=== PATIENT | male | born 1945 | race Caucasian/White ===

== ENCOUNTER → 2017-04-02 | Outpatient (REF) | payer MEDICARE, OTHER ==
[~2017-04-02] MED LIST: /DIVA50TA PO; CIALIS PO; OMEP20CA3 PO; RAMI10CA PO; SIMV40TA2 PO
[2017-04-02 11:49] LABS: MEAN CORPUSCULAR HEMOGLOBIN 31.5 pg (27.0-33.0); MEAN CORPUSCULAR HGB CONC 33.8 g/dl (32.0-36.5); RED CELL DISTRIBUTION WIDTH 11.4 % (11.5-14.5); WHITE BLOOD COUNT 6.1 10^3/uL (4.0-10.0)
[2017-04-02 12:07] LABS: ALBUMIN 3.7 GM/DL (3.2-5.2); ALBUMIN/GLOBULIN RATIO 1.06 (1.00-1.93); ALKALINE PHOSPHATASE 53 U/L (45-117); ALT/SGPT 57 U/L (12-78); ANION GAP 6 MEQ/L (8-16); AST/SGOT 29 U/L (15-37); BILIRUBIN,TOTAL 0.5 MG/DL (0.2-1.0); BLOOD UREA NITROGEN 17 MG/DL (7-18); CALCIUM LEVEL 9.6 MG/DL (8.8-10.2); CARBON DIOXIDE LEVEL 33 MEQ/L (21-32); CHLORIDE LEVEL 101 MEQ/L (98-107); CHOLESTEROL LEVEL 158 MG/DL (<200); GLOMERULAR FILTRATION RATE > 60.0 (>42); GLUCOSE, FASTING 108 MG/DL (83-110); POTASSIUM SERUM 4.3 MEQ/L (3.5-5.1); SODIUM LEVEL 140 MEQ/L (136-145); TOTAL PROTEIN 7.2 GM/DL (6.4-8.2); TRIGLYCERIDES LEVEL 179 MG/DL (<150)
== END ==
LOC: M SFHCCLAY 10:45
PROVIDERS: ATTEND Family Medicine
DX: I11.9 Hypertensive heart disease without heart failure (principal); K21.9 Gastro-esophageal reflux disease without esophagitis; E78.00 Pure hypercholesterolemia, unspecified

== ENCOUNTER 2017-05-03 15:41 | Observation (INO) | payer MEDICARE, BC, OTHER ==
[~2017-05-03] VITALS: Ht 170.2 cm; Wt 98.0 kg
[2017-05-03] MEDS ORDERED: ALEV220T26 PO (15:53)
--- NOTE | 2017-05-03 16:51 | REP ---
CT Head without contrast HISTORY: Infarction COMPARISON: 08/31/2008 Areas of decreased attenuation are present in the periventricular white matter. This represents all vessels disease. There is no intraparenchymal hemorrhage, acute infarct, mass or midline shift. The ventricular system and cortical sulci as well as subarachnoid space in the posterior fossa are dilated consistent with minimal volume loss. There is no extra cerebral collection. There is no fracture. The visualized sinuses are clear. IMPRESSION: 1. Small vessel ischemic disease. 2. Minimal volume loss. Signed by Clint Pepper MD 05/03/2017 04:42 P
[2017-05-03 17:15] LABS: BASO % 0.1 % (0.0-1.0); EOS % 0.3 % (0.0-3.0); IMMATURE GRANULOCYTE % 0.3 % (0-0); LYMPH # 0.4 10^3/uL (1.5-4.5); LYMPH % 4.3 % (24.0-44.0); MEAN CORPUSCULAR HEMOGLOBIN 31.7 pg (27.0-33.0); MEAN CORPUSCULAR HGB CONC 34.1 g/dl (32.0-36.5); MONO # 0.5 10^3/uL (0.0-0.8); NEUTROPHILS # 8.3 10^3/uL (1.8-7.7); PLATELET COUNT, AUTOMATED 118 10^3/uL (150-450); RED CELL DISTRIBUTION WIDTH 11.8 % (11.5-14.5); WHITE BLOOD COUNT 9.2 10^3/uL (4.0-10.0)
[2017-05-03 17:26] LABS: INR 1.04
[2017-05-03 17:35] LABS: ANION GAP 6 MEQ/L (8-16); BLOOD UREA NITROGEN 29 MG/DL (7-18); CALCIUM LEVEL 9.1 MG/DL (8.8-10.2); CARBON DIOXIDE LEVEL 30 MEQ/L (21-32); CHLORIDE LEVEL 107 MEQ/L (98-107); CREATININE FOR GFR 1.16 MG/DL (0.70-1.30); GLOMERULAR FILTRATION RATE > 60.0 (>42); GLUCOSE, FASTING 164 MG/DL (83-110); POTASSIUM SERUM 4.6 MEQ/L (3.5-5.1); SODIUM LEVEL 143 MEQ/L (136-145)
[2017-05-03] MEDS ORDERED: DEPA500T2 PO ×2 (19:57)
[2017-05-03] MEDS ORDERED: CIAL20TA PO (19:57)
[2017-05-03] MEDS ORDERED: DIVALPROEX 500MG *ER* TAB PO SCH (21:00)
[2017-05-03] MEDS ORDERED: RAMIPRIL 5 MG CAP PO SCH (21:00)
--- NOTE | 2017-05-03 21:24 | HPE ---
DATE OF ADMISSION: 05/03/2017 PRIMARY CARE PROVIDER: Kendall Du MD at [place]. Patient comes in with a chief complaint of foot drop beginning yesterday evening, 05/02/2017. Patient notes that he was putting up his [employer] decorations in the yard outside. He was walking back and forth to the house. He said at some point during the evening, however, he found that when he got up to walk he suddenly had some foot drop. Patient says that he went to sleep figuring that it was some sort of mechanical injury. When he woke up during the day, however, it had not resolved. Although patient's condition has improved, as per patient, it has not fully resolved. Patient went to his orthopedist and his orthopedist sent him to the emergency department (ED) for evaluation of possible transient ischemic attack (TIA) versus CVA. Patient received a CT scan while in the ED, however MRI was not feasible given patient's pacemaker. Physician automotive parts counter assistant (PA) in the ED consulted neurology, recommended admission under observation for CVA/TIA rule out. Patient has a previous medical history of bradycardia status post a seizure for which he now has a pacemaker. Patient also has history of seizure as noted above. Patient's home medications include: - naproxen - tadalafil - Depakote - omeprazole - ramipril - simvastatin Patient denies any significant family medical history. ALLERGIES: Patient has allergies to OXYCODONE and OXYCONTIN as per patient. On full review of systems, patient without any other complaints acutely other than what is noted in the history of present illness (HPI). SOCIAL HISTORY: Patient is a retired [employer] worker. PHYSICAL EXAMINATION: Patient's vital signs within normal limits. Temperature 97.3, pulse 86, respiratory rate 16, blood pressure 132/82, pulse oximetry 94% on room air, patient notes that that has been his baseline. Patient also notes that he has no history of chronic obstructive pulmonary disease (COPD) or asthma, takes no medications, or suffers from shortness of breath. Patient is alert and oriented times three with normal affect and normal mood. Patient's cranial nerves (CN) II-XII grossly intact. Patient has good strength in all four major extremities. Patient does have good plantar flexion, but forward dorsiflexion on his right foot is 4/5 dorsiflexion on the right. All other muscle groups show good strength. Patient is able to ambulate without difficulty at this time. S1, S2, regular rate and rhythm, no murmurs, rubs, or gallops. Pacemaker apparent on chest exam. Good inspiratory and expiratory effort. No wheezes, rhonchis, or rales. Abdomen is soft, nontender to palpation. No apparent lymphadenopathy. Ears, nose, throat (ENT) within normal limits. Extraocular movement intact. Pupils equal, round and reactive to light and accommodation. LABORATORY DATA: CBC grossly normal. Chemistry also grossly normal except a mildly elevated BUN of 29/1.16, mildly elevated glucose of 164, however this is not a fasting glucose. PT/INR is 13.7/1.04. IMAGING: Head CT impression is small vessel ischemic disease, minimal volume loss. MRI cannot be done as patient with pacemaker. ASSESSMENT AND PLAN: Patient is a 72-year-old male with a previous medical history as noted above. Patient to be kept in progressive care unit (PCU) for observation. Neurology contacted by myself with [id number] conversation. Neurology to see patient in the morning. Neurologic checks. Aspirin recommended, not statins as per neurology. For hypertension, continue home medications, continue lisinopril. Will hold erectile dysfunction medication at this time. Patient for observation at this time only as patient is already 24 hours post with improving status and no obvious indication that this is a CVA, could be also nerve impingement. Patient first seen 05/03/2017.
[2017-05-03 22:23] VITALS: BP 133/80
[2017-05-03] MEDS: ASPIRIN 81 MG CHEW TABLET PO SCH (22:46)
[2017-05-03 22:47] VITALS: BP 133/80
[2017-05-04] MEDS ORDERED: SLF 3 ML SYR IV PRN (02:15)
[2017-05-04] MEDS ORDERED: FAMOTIDINE 20 MG TAB PO ONE (05:15)
[2017-05-04] MEDS: SLF 3 ML SYR IV SCH ×2 (05:25→13:00)
[2017-05-04 05:50] LABS: MEAN CORPUSCULAR HEMOGLOBIN 30.5 pg (27.0-33.0); MEAN CORPUSCULAR HGB CONC 32.5 g/dl (32.0-36.5); MEAN CORPUSCULAR VOLUME 93.9 fl (80.0-96.0); PLATELET COUNT, AUTOMATED 118 10^3/uL (150-450); RED CELL DISTRIBUTION WIDTH 11.9 % (11.5-14.5); WHITE BLOOD COUNT 6.3 10^3/uL (4.0-10.0)
[2017-05-04 05:59] LABS: ANION GAP 7 MEQ/L (8-16); BLOOD UREA NITROGEN 30 MG/DL (7-18); CALCIUM LEVEL 8.6 MG/DL (8.8-10.2); CARBON DIOXIDE LEVEL 30 MEQ/L (21-32); CHLORIDE LEVEL 108 MEQ/L (98-107); CREATININE FOR GFR 1.06 MG/DL (0.70-1.30); GLOMERULAR FILTRATION RATE > 60.0 (>42); GLUCOSE, FASTING 152 MG/DL (83-110); POTASSIUM SERUM 3.9 MEQ/L (3.5-5.1); SODIUM LEVEL 145 MEQ/L (136-145)
--- NOTE | 2017-05-04 07:40 | ECGEPIP ---
Stationary ECG Study [facility] - ED Test Date: 2017-05-03 Pat Name: GAYLA VILLAFUERTE Department: Room: - Gender: M Boot Maker: ct : 1945 Requested By: LACI Fish PA-C Order Number: [id number] Reading MD: Edgar Cooley Measurements Intervals [place] Rate: 101 P: 41 OR: 194 QRS: -25 QRSD: 103 T: 69 QT: 350 QTc: 454 Interpretive Statements SINUS TACHYCARDIA NONSPECIFIC T-WAVE ABNORMALITY RHYTHM CHANGE COMPARED TO 02/21/14 Electronically Signed On 05-04-2017 7:39:35 EST by Edgar Cooley
[2017-05-04 08:00] VITALS: BP 173/85
[2017-05-04] MEDS ORDERED: OMEPRAZOLE 20 MG CAP PO SCH (09:00)
[2017-05-04] MEDS ORDERED: DIVALPROEX 500MG *ER* TAB PO SCH (09:00)
[2017-05-04] MEDS ORDERED: SIMVASTATIN 40 MG TAB PO SCH (09:00)
--- NOTE | 2017-05-04 09:07 | IPN ---
DATE OF SERVICE: 05/04/2017 Francisco was admitted with a right foot drop. He had been doing a lot of work around the house, [employer] decorations, etc.. Two days before admission, he laid down in his recliner and then when he woke up, he noticed his right foot felt weak and he had a foot drop. He had an appointment to see his orthopedist the next day so we went and saw Dr. Mckeon. Dr. Mckeon sent him to the emergency room because he was concerned about stroke or transient ischemic attack (TIA). He has absolutely no symptoms beyond the right foot drop. He has no weakness in the leg or right hand/right face. Strength to the foot is normal on plantar flexion, it is just dorsiflexion that is weak which is not consistent with stroke. Apparently the ER called neurology and admission was advised. It seems to me he simply has a peroneal nerve palsy which is really an outpatient condition. Blood pressure 133/80, pulse 90, respiratory rate 18, 91% oxygen saturation. General appearance: He is resting in bed, no distress. No carotid bruits. Lungs: Clear. Heart: 1/6 systolic ejection murmur. Abdomen: Soft, nontender, no masses, no peripheral edema. Neuro exam: Shows cranial nerves II-XII to be intact. Mental status exam normal. He has normal strength, reflexes, coordination and sensation in his upper extremities as well as the left lower extremity. Right lower extremity has normal strength in the quadriceps, hamstrings and to plantar flex the foot. He has 4/5 strength on dorsiflexion of the foot. His greatest weakness is trying to extend the great toe of the right foot. Sensation is normal in the foot. Reflexes are normal. LABS: CT of the brain is unremarkable. Electrolytes show mildly elevated BUN, otherwise unremarkable. IMPRESSION: Right foot drop. I think this is a peroneal nerve palsy that typically is an outpatient workup. At this point, he has been admitted to progressive care unit (PCU). I would really like to get him home today as I do not think he warranted admission for this condition. I discussed the case with Dr. Craft who indicates that he felt the patient has a peroneal nerve palsy as well but advised admission for further evaluation. He would like a repeat CT scan of the brain and carotid ultrasound before the patient is seen and then hopefully can be discharged home so we can get the nerve conduction study and EMG that is usually a part of the workup for this. Patient has a pacer so there is no MRI imaging that we can do. He does not have any problems with back pain so I do not think this is a disc issue. I have also put a consult in for orthopedics because I think he needs a splint before discharge. PLAN: CT of the brain and carotid ultrasound prior to being evaluated by neurology and then discharge him after he gets a splint and is seen by neuro.
[2017-05-04] MEDS: ASPIRIN 81 MG CHEW TABLET PO SCH (09:08)
--- NOTE | 2017-05-04 09:38 | REP ---
CT Head without contrast HISTORY: Right foot drop COMPARISON: 05/03/2017 Areas of decreased attenuation are present in the periventricular white matter. This represents small-vessel ischemic disease. There is no intraparenchymal hemorrhage, acute infarct, mass or midline shift. The ventricular system and cortical sulci as well as subarachnoid space in the posterior fossa are dilated consistent with minimal volume loss. There is no extra cerebral collection. There is no fracture. The visualized sinuses are clear. IMPRESSION: 1. Small vessel ischemic disease. 2. Minimal volume loss. Signed by Clint Pepper MD 05/04/2017 09:31 A
[2017-05-04 12:00] VITALS: BP 118/78
--- NOTE | 2017-05-04 15:23 | REP ---
CAROTID ULTRASOUND: Real-time ultrasound evaluation and duplex Doppler interrogation of the extracranial carotid vasculature is performed. There is mild plaquing and narrowing in both carotid bulbs extending into the internal and external carotid arteries. Luminal narrowing is less than 50%. There is no evidence of hemodynamically significant stenosis of either internal carotid artery. Normal flow velocities are seen. The vertebral arteries demonstrate normal direction of flow. RIGHT LEFT Peak systolic velocity ICA 71 cm/s 59.6 cm/s End diastolic velocity ICA 16.8 cm/s 5.7 cm/s Peak systolic velocity CCA 146.4 cm/s 148.9 cm/s Peak systolic velocity ECA 107.1 cm/s 90.5 cm/s ICA/CCA ratio 0.4 0.4 IMPRESSION: Bilateral luminal narrowing of the internal carotid arteries less than 50%. No evidence of hemodynamically significant stenosis. Signed by Pietro Vaughn MD 05/04/2017 03:14 P
[2017-05-04 16:00] VITALS: BP 120/80
--- NOTE | 2017-05-04 16:27 | CR ---
DATE OF CONSULTATION: 05/04/2017 CHIEF COMPLAINT: Right foot drop. HISTORY OF PRESENT ILLNESS: This is a 72-year-old male who on 05/02/2017 noticed that he was having some weakness in his right ankle. The patient states he was sitting in a recliner, and when he got up in the evening he found that he had a right foot drop. Patient states he noticed his foot was flapping against the ground. When he awoke the following morning, he found that the issue had not resolved. He was seen here at [facility], where he was sent to the emergency room for evaluation of a possible transient ischemic attack (TIA) or cerebrovascular accident (CVA). In the emergency room he underwent a CT scan, and neurology was consulted. Unfortunately, the patient cannot get an MRI due to a pacemaker. PAST MEDICAL HISTORY: 1. Seizure disorder. 2. Bradycardia. HOME MEDICATIONS: Naproxen, tadalafil, Depakote, omeprazole. ALLERGIES: OXYCODONE AND OXYCONTIN. SOCIAL HISTORY: The patient is a retired department of [employer] job titles. REVIEW OF SYSTEMS: No fevers, chills, numbness, tingling, weakness in other extremities besides his right ankle, or significant pain. PHYSICAL EXAMINATION: GENERAL: Well appearing, alert and oriented. No acute distress. PULMONARY: Regular breathing. MUSCULOSKELETAL: In the right foot, the patient has 5/5 strength of plantarflexion. He is able to dorsiflex his foot a small amount, but this is relatively weak, approximately 3-4 out of 5. The patient states this has actually improved since 2 days ago. He has normal sensation to light touch in the superficial peroneal, deep peroneal, and tibial distribution. His foot is warm and well perfused, and there is a palpable dorsalis pedis pulse. He has no pain in the ankle or foot. There is no pain proximally in the region of the common peroneal nerve across his fibula. No significant swelling in the calf. 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 PLAN: The patient should undergo further workup to identify the cause of his nerve palsy. This would likely include an electromyogram (EMG). Unfortunately, he cannot get an MRI. In the meantime, he would benefit from use of an ankle/foot orthosis (AFO) to help from any sort of contracture of his ankle. It would be okay for him to be discharged from the hospital with a lace-up ankle brace and have the AFO made for him early next week. I already follow this patient and would be happy to see him back next week. He does have an appointment scheduled for May 17 as well. I will refer to neurology and the internal medicine doctor for any further workup regarding a potential stroke.
--- NOTE | 2017-05-04 17:49 | DS.PDOC ---
Discharge Summary General Date of Admission May 03, 2017 at 19:57 Date of Discharge 05/04/17 Discharge Summary Consults: Orthopedic surgery (Gia), neurology (Venancio) Discharge diagnosis: Right foot drop Secondary diagnosis: Hypertension Hospital course: Patient was admitted on 05/03/17 with right foot drop. He was admitted due to concern for TIA. On admission patient had CT of head which showed minimal volume loss, small vessel ischemic disease, repeat CT on 05/04/17 did not show any change. On 05/04/17 patient was seen and evaluated by orthopedic surgery, neurology. Orthopedic surgery recommended a ankle brace, AFO. She recommended that he have office follow-up. Neurology saw and cleared patient for discharge. Progress note on date of discharge: Subjective: Patient reports that he is doing okay. He is complaining of a little soreness and weakness in his foot but otherwise does not have any acute concerns. Objective: Vitals: Temperature 98.6, pulse 71, respiratory rate 22, blood pressure 118/78, pulse ox 92% on room air Gen.: Patient awake, alert and oriented, verbal and able to answer questions appropriately. Patient does not appear to be in any acute distress Musculoskeletal: 5/5 strength present throughout right and left lower extremity with exception of right foot plantar flexion which shows 4/5 strength. Neurological: Sensation intact and symmetrical throughout lower extremities bilaterally Labs: CBC: White blood cell 6.3, hemoglobin and hematocrit 15.9/48.9, platelets 118 Chemistry: Sodium 145, potassium 3.9, chloride 108, carbon dioxide 30, BUN 30, creatinine 1.06, glucose 152, calcium 8.6 Assessment: Patient is a 72-year-old male with right foot drop, seen and evaluated by neurology and orthopedic surgery. He symptoms are stable and he is clear for discharge. Disposition: Discharge patient to home Follow-up: With orthopedic surgery () in 2-3 days, primary care (Dr. Du) in 5- 7 days, neurology (Dr. Craft) in 5-7 days Additional instructions: Patient advised to use lace up ankle brace until advised otherwise by orthopedic surgery, primary care, neurology Activity: As tolerated Diet: As tolerated Medications on discharge: Depakote 500 mg by mouth daily Depakote 1000 mg by mouth daily at bedtime Naproxen 220 mg by mouth twice a day for pain Omeprazole 20 mg by mouth daily Ramipril 10 mg by mouth daily at bedtime Simvastatin 40 mg by mouth daily Tadalafil 20 mg by mouth daily as needed for erectile dysfunction Cc: , Dr. Du, Dr. Craft Discharge Medications Scheduled (Ramipril) 10 Mg Cap, 10 MG PO QHS, (Reported) Divalproex Sodium (Depakote ER) 500 Mg Tab, 500 MG PO QAM, (Reported) Divalproex Sodium (Depakote ER) 500 Mg Tab, 1,000 MG PO QHS, (Reported) Omeprazole (Omeprazole) 20 Mg Cap, 20 MG PO DAILY, (Reported) Simvastatin - High Dose (Simvastatin) 40 Mg Tab, 40 MG PO DAILY, (Reported) Scheduled PRN Naproxen Sodium (Aleve) 220 Mg Tab, 220 MG PO BID PRN for PAIN, (Reported) Tadalafil (Cialis) 20 Mg Tab, 20 MG PO DAILY PRN for ERECTILE DYSFUNCTION, ( Reported) Allergies Coded Allergies: Oxycodone (Verified Adverse Reaction, Mild, "made me hot all over", ) GME ATTESTATION GME ATTESTATION My faculty preceptor for this patient encounter was physically present during the encounter and was fully available. All aspects of the patient interview, examination, medical decision making process, and medical care plan development were reviewed and approved by the faculty preceptor. The faculty preceptor is aware and concurs with the plan as stated in the body of this note and will attest to such by his/her cosignature. ANGELITO NGUYEN DO May 04, 2017 17:49
--- NOTE | 2017-05-06 11:30 | CR ---
DATE OF CONSULTATION: 05/03/2017 REFERRING PHYSICIAN: Dr. Juarez Purcell REASON FOR CONSULTATION: Right-sided foot drop. HISTORY OF PRESENT ILLNESS: Francisco Orozco is a 72-year-old man who was at his baseline state of health until evening of 05/02/2017, when he was sitting in a recliner watching TV. He got up and felt weakness of right foot in dorsiflexion. He did not have any numbness or pain. He denies any weight loss or sitting in an unusual position in the recliner. He denies any headaches, neck or back pain. He went and saw his orthopedic surgeon, who referred him to the emergency department thinking that he may have had a stroke. The patient is unable to get MRI scan of brain. He has a pacemaker since 2004 due to severe bradycardia and heart block. He also has history of seizures. He had first seizure in 2004 and then second seizure 4 years later. He has been on Depakote. PAST MEDICAL HISTORY: 1. Seizures. 2. Pacemaker placement due to bradycardia and heart block. 3. Acid reflux. 4. Hypertension. 5. Dyslipidemia. CURRENT MEDICATIONS: - Depakote - omeprazole - ramipril - simvastatin - tadalafil - naproxen ALLERGIES: OXYCODONE. SOCIAL HISTORY: He denies smoking, alcohol or illicit drugs. FAMILY HISTORY: Unremarkable and noncontributory. REVIEW OF SYSTEMS: All systems were reviewed and found to be noncontributory except as mentioned in history present illness. PHYSICAL EXAMINATION: Blood pressure 130/ , pulse 86, respiratory 16, temperature 97.3. Heart regular rate rhythm. Lungs clear to auscultation. Abdomen soft, nontender, nondistended. No pedal edema. No gross musculoskeletal abnormalities. No rash. No rigidity of tremor. No dysmetria or ataxia. Patient is awake, alert, oriented to place, person and time. Normal speech comprehension and repetition. Extraocular muscles are intact. No facial weakness. Tongue and uvula are midline. 5/5 strength in all four extremities, except right foot in dorsi flexion where strength is 4+/5. Deep tendon reflexes are 2+ throughout. He feels altered sensation in dorsum of right foot. Rest of the sensory examination is within normal limits. Plantar's are downgoing. DIAGNOSTIC STUDIES: CT scan of his head twice shows small vessel ischemic disease of brain. Carotid ultrasound showed less than 50% bilateral carotid artery stenosis. ASSESSMENT: 1. 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 2. Bilateral carotid artery less than 50% stenosis. 3. Small-vessel ischemic disease of brain. PLAN: 1. Electromyogram (EMG) nerve conduction study of right leg on outpatient basis. 2. Aspirin 81 mg by mouth daily, and continue simvastatin and ramipril. He also takes Depakote for his seizures. 3. He will follow with our office in 1 month after hospital discharge. He will do home exercises to improve strength of his right foot.
== END 2017-05-04 18:34 | disposition home or self-care (01) ==
LOC: M ED 15:41 → M ED INP 19:57 → M PCU 22:20
PROVIDERS: ADMIT Internal Medicine; ATTEND Family Medicine
DX: M21.371 Foot drop, right foot (principal); G40.909 Epilepsy, unspecified, not intractable, without status epilepticus; I10 Essential (primary) hypertension; K21.9 Gastro-esophageal reflux disease without esophagitis; E78.5 Hyperlipidemia, unspecified; I65.23 Occlusion and stenosis of bilateral carotid arteries; Z95.0 Presence of cardiac pacemaker; Z79.899 Other long term (current) drug therapy; Z88.5 Allergy status to narcotic agent
CPT/HCPCS: 36415; 70450; 80048; 82550; 82553; 84484; 85025; 85027; 85610; 93005; 93880; 99284; G0378

== ENCOUNTER → 2017-05-21 | Outpatient (REF) | payer MEDICARE, OTHER ==
[~2017-05-21] MED LIST changes: +ALEV220T26 PO; +ASPI81TA85 PO; +CIAL20TA PO; +DEPA500T2 PO
[2017-05-21 12:18] LABS: BASO % 0.5 % (0.0-1.0); EOS # 0.1 10^3/uL (0.0-0.50); EOS % 1.4 % (0.0-3.0); IMMATURE GRANULOCYTE % 0.3 % (0-0); LYMPH # 2.1 10^3/uL (1.5-4.5); LYMPH % 36.3 % (24.0-44.0); MEAN CORPUSCULAR HEMOGLOBIN 31.2 pg (27.0-33.0); MEAN CORPUSCULAR HGB CONC 33.3 g/dl (32.0-36.5); MEAN CORPUSCULAR VOLUME 93.7 fl (80.0-96.0); MONO # 0.8 10^3/uL (0.0-0.8); MONO % 13.6 % (0.0-5.0); NEUTROPHILS # 2.8 10^3/uL (1.8-7.7); NEUTROPHILS % 47.9 % (36.0-66.0); PLATELET COUNT, AUTOMATED 147 10^3/uL (150-450); RED CELL DISTRIBUTION WIDTH 11.9 % (11.5-14.5); WHITE BLOOD COUNT 5.8 10^3/uL (4.0-10.0)
[2017-05-21 13:29] LABS: ALBUMIN 3.5 GM/DL (3.2-5.2); ANION GAP 7 MEQ/L (8-16); BLOOD UREA NITROGEN 24 MG/DL (7-18); CALCIUM LEVEL 8.7 MG/DL (8.8-10.2); CARBON DIOXIDE LEVEL 30 MEQ/L (21-32); CHLORIDE LEVEL 107 MEQ/L (98-107); GLOMERULAR FILTRATION RATE > 60.0 (>42); GLUCOSE, FASTING 115 MG/DL (83-110); PHOSPHORUS LEVEL 2.2 MG/DL (2.5-4.9); POTASSIUM SERUM 4.3 MEQ/L (3.5-5.1); SODIUM LEVEL 144 MEQ/L (136-145)
== END ==
LOC: M LABDRAW1 09:15
PROVIDERS: ATTEND Physician Assistant
DX: I49.5 Sick sinus syndrome (principal)

== ENCOUNTER 2017-05-23 11:15 | Day surgery (SDC) | payer MEDICARE, BC, OTHER ==
[~2017-05-23] VITALS: Ht 170.2 cm; Wt 97.5 kg
[~2017-05-23 11:15] MED LIST changes: +LIDOCAINE 2% INJ 100 MG/5 ML SDV (FOR ANES.) As Ordered ONE; +MIDAZOLAM INJ 2 MG/2 ML VIAL (J2250) As Ordered ONE; +PROPOFOL 200 MG/20 ML VIAL As Ordered ONE; +fentaNYL 100 MCG/2 ML INJECTION (J3010) As Ordered ONE
[2017-05-23] MEDS ORDERED: CEFAZOLIN SOD 1 GM in APPROPRIATE DILUENT 1 EA IV ONE ×2 (12:00→13:00)
[2017-05-23] MEDS ORDERED: ISOVUE-300 61% 50ML VIAL (Q9967) As Ordered ONE (12:51)
[2017-05-23] MEDS ORDERED: BACITRACIN PWD 50,000 UNITS VIAL As Ordered ONE (12:51)
[2017-05-23] MEDS ORDERED: LIDOCAINE 1% SDV INJ 30 ML VIAL As Ordered ONE (12:51)
[2017-05-23] MEDS ORDERED: LR 1,000 ML IV ONE (13:00)
--- NOTE | 2017-05-23 14:35 | RO ---
DATE OF PROCEDURE: 05/23/2017 PROCEDURE: 1. Explantation of depleted dual-chamber pulse generator. 2. Testing of old atrial and ventricular pacing leads. 3. Implantation of new dual-chamber pulse generator. IMPLANTING BUSINESS ANALYST INTERN: Dr. Kings Mcdonald ANESTHESIOLOGIST: Dr. French PREOPERATIVE DIAGNOSIS: 1. Pacemaker battery depletion. 2. Sinus node dysfunction. 3. Hypertensive heart disease (benign without heart failure). POSTOPERATIVE DIAGNOSIS: 1. Pacemaker battery depletion. 2. Sinus node dysfunction. 3. Hypertensive heart disease (benign without heart failure). TYPE OF ANESTHESIA: Monitored local anesthesia. CLINICAL SUMMARY: This is a 72-year-old retired resident of [place], [place] has been followed by our practice for hypertensive and valvular heart disease completed by abnormal EKG and sinus node dysfunction. He has been free of any cardiovascular complaints. His device has been checked regularly through our office and has recently shown the elective replacement indicator. Arrangements were made for his battery replacement today. Overweight somewhat barrel-chested, stocky elderly male laying comfortably flat. Heart rate 68 beats per minute, blood pressure 124/68 sitting, respiratory rate 18 per minute, BMI 33.2. No pallor or cyanosis. Normal oral moisture. Increased anteroposterior chest diameter with well-healed pacemaker incision left subclavian region. Good air entry in both lung kline with no adventitious sounds. Apical impulse not palpable. Heart sounds somewhat distant. No audible gallop, has a soft systolic ejection murmur. No dependent edema. EKG March 19, 2017 showed consistent atrially paced rhythm with spontaneous AV conduction. Spontaneous QRS complexes were narrow with poor precordial R-wave progression and persistent S waves in V5 and V6 in keeping with body habitus versus pulmonary disease. Nonspecific ST/T-wave abnormalities but these were unchanged from August 2016. Blood work showed a hemoglobin of 17, normal white blood cell count and platelet count, normal electrolytes, BUN 17, creatinine 0.89, random glucose 110. DESCRIPTION OF PROCEDURE: In the fasting state following informed consent and Ancef 2 grams IV premedication, the patient was taken to the operating theater. Numerous skin electrodes were applied to facilitate continuous electrocardiographic monitoring. The left subclavian region the site of his old pacemaker implant was prepped and draped in usual fashion. The skin along his old incision line was then infiltrated with 1% Xylocaine. A 5 cm linear incision was made along the same line. Careful dissection was then performed down to the level of his depleted pulse generator which was then explanted ([employer] model number 5386 serial number [id number] implanted May 22, 2005). The atrial and ventricular pacing leads were then disconnected and tested independently. The ventricular lead ([employer] model number 1388T/58, serial number [id number]) measurements were focal and stimulation 1.75V/0.4 ms/impedance 380 ohms. The R-wave amplitude measured 3.7 mV. The atrial lead ([employer] model number 3891M00, serial number [id number]) measurements were focal and stimulation threshold 1.75V/0.4 ms/impedance 250 ohms. The P-wave amplitude measured 2.0 mV. His old pacer pocket was thoroughly irrigated with the bacitracin solution. The old of pacing leads were then connected to a new dual-chamber pulse generator ([employer] - Assurity MRI compatible model number AS1638, serial number [id number]) and appropriate DDD pacing was documented. The generator was then placed in the pocket and secured in position. The subcutaneous tissues were approximated using a running chromic suture. Skin was closed using mamadou. A dry dressing was applied. The patient was returned to recovery room in good condition. Estimated blood loss less than 5 mL. No apparent complications. Our plan is to monitor the patient until he is fully alert and able to ambulate. He will then be discharged home. He has a followup appointment with our office for wound check and staple removal for May 31 at 8 a.m. We requested that he perform any light activities of daily living with his left arm and avoid getting his incision wet until his mamadou are removed in our office. He has been encouraged to contact us promptly for any abnormal erythema, swelling or discharge. His medications will resume the same: simvastatin 40 mg daily, Altace at 10 mg at bedtime, Cialis 10 mg tablets 1/2 - 1 tablet as-needed medications, omeprazole 20 mg daily, Depakote 500 mg every a.m. and 1 gram every p.m., Aleve 220 mg tablets 1 or 2 tablets four times a day as needed.
[2017-05-23 14:45] VITALS: BP 151/76
== END 2017-05-23 15:00 | disposition home or self-care (01) ==
LOC: M SDC 11:15
PROVIDERS: ATTEND Internal Medicine Cardiovascular Disease
DX: T82.111A Breakdown (mechanical) of cardiac pulse generator (battery), initial encounter (principal); I49.5 Sick sinus syndrome; I11.9 Hypertensive heart disease without heart failure; E66.3 Overweight; G40.909 Epilepsy, unspecified, not intractable, without status epilepticus; E78.00 Pure hypercholesterolemia, unspecified; M12.9 Arthropathy, unspecified; M51.9 Unspecified thoracic, thoracolumbar and lumbosacral intervertebral disc disorder; M70.61 Trochanteric bursitis, right hip; M70.62 Trochanteric bursitis, left hip; R06.83 Snoring; Z88.5 Allergy status to narcotic agent; Z79.899 Other long term (current) drug therapy; Z79.82 Long term (current) use of aspirin; Z87.81 Personal history of (healed) traumatic fracture
CPT/HCPCS: 33228; 96374; C1785; J0690; J2250; J3010

== ENCOUNTER → 2017-05-25 | Outpatient (REF) | payer MEDICARE, OTHER ==
[~2017-05-25] MED LIST changes: -LIDOCAINE 2% INJ 100 MG/5 ML SDV (FOR ANES.) As Ordered ONE; -MIDAZOLAM INJ 2 MG/2 ML VIAL (J2250) As Ordered ONE; -PROPOFOL 200 MG/20 ML VIAL As Ordered ONE; -fentaNYL 100 MCG/2 ML INJECTION (J3010) As Ordered ONE
== END ==
LOC: M SFHCCLAY 10:25
PROVIDERS: ATTEND Family Medicine
DX: E11.9 Type 2 diabetes mellitus without complications (principal)

== ENCOUNTER → 2017-06-07 | Outpatient (REF) | payer MEDICARE, OTHER | LOC: M LABDRAW1 11:39 | PROVIDERS: ATTEND Physician Assistant Medical | DX: R56.9 Unspecified convulsions (principal) ==

== ENCOUNTER → 2017-06-13 | Outpatient (REF) | payer MEDICARE, OTHER ==
[2017-06-13 15:32] LABS: CREATININE FOR GFR 0.86 MG/DL (0.70-1.30); GLOMERULAR FILTRATION RATE > 60.0 (>42)
[2017-06-13 15:32] LABS: BLOOD UREA NITROGEN 16 MG/DL (7-18)
== END ==
LOC: M LABDRAW1 11:18
DX: G57.31 Lesion of lateral popliteal nerve, right lower limb (principal)
CPT/HCPCS: 82565

== ENCOUNTER → 2017-06-15 | Outpatient (CLI) | payer MEDICARE, BC, OTHER ==
[~2017-06-15] MED LIST changes: -/DIVA50TA PO; -ALEV220T26 PO; -ASPI81TA85 PO; -CIAL20TA PO; -CIALIS PO; -DEPA500T2 PO; +ISOVUE-370 76% 100ML VIAL (Q9967) As Ordered; -OMEP20CA3 PO; -RAMI10CA PO; -SIMV40TA2 PO
== END ==
LOC: M RAD 08:47
DX: G57.31 Lesion of lateral popliteal nerve, right lower limb (principal); M19.032 Primary osteoarthritis, left wrist
CPT/HCPCS: Q9967

== ENCOUNTER 2018-03-18 12:04 | Day surgery (SDC) | payer MEDICARE, BC, OTHER ==
[~2018-03-18 12:04] MED LIST changes: -ISOVUE-370 76% 100ML VIAL (Q9967) As Ordered; +NS 1,000 ML IV
[2018-03-18] MEDS ORDERED: LIDOCAINE 2% INJ 100 MG/5 ML SYRINGE As Ordered (13:31)
[2018-03-18] MEDS ORDERED: PROPOFOL 200 MG/20 ML VIAL As Ordered (13:31)
== END 2018-03-18 14:49 | disposition home or self-care (01) ==
LOC: M OPP 12:04
DX: Z12.11 Encounter for screening for malignant neoplasm of colon (principal); Z86.010 Personal history of colon polyps; D12.4 Benign neoplasm of descending colon; D12.2 Benign neoplasm of ascending colon; K64.0 First degree hemorrhoids; K57.30 Diverticulosis of large intestine without perforation or abscess without bleeding; I10 Essential (primary) hypertension; E78.5 Hyperlipidemia, unspecified; I25.10 Atherosclerotic heart disease of native coronary artery without angina pectoris; Z95.0 Presence of cardiac pacemaker; K21.9 Gastro-esophageal reflux disease without esophagitis; R12 Heartburn; M19.90 Unspecified osteoarthritis, unspecified site; R56.9 Unspecified convulsions; R06.83 Snoring; K44.9 Diaphragmatic hernia without obstruction or gangrene; Z88.5 Allergy status to narcotic agent; Z79.82 Long term (current) use of aspirin; Z79.899 Other long term (current) drug therapy
CPT/HCPCS: 45385

== ENCOUNTER → 2018-04-02 | Outpatient (CLI) | payer MEDICARE, BC, OTHER ==
[2018-04-02 09:20] LABS: HEMATOCRIT 49.4 % (42.0-52.0); MEAN CORPUSCULAR HEMOGLOBIN 31.7 pg (27.0-33.0); MEAN CORPUSCULAR HGB CONC 34.4 g/dl (32.0-36.5); PLATELET COUNT, AUTOMATED 157 10^3/uL (150-450); RED BLOOD COUNT 5.37 10^6/uL (4.30-6.10); RED CELL DISTRIBUTION WIDTH 11.4 % (11.5-14.5); WHITE BLOOD COUNT 5.9 10^3/uL (4.0-10.0)
[2018-04-02 09:36] LABS: ALBUMIN 3.6 GM/DL (3.2-5.2); ALBUMIN/GLOBULIN RATIO 1.06 (1.00-1.93); ALKALINE PHOSPHATASE 54 U/L (45-117); ALT/SGPT 59 U/L (12-78); ANION GAP 7 MEQ/L (8-16); AST/SGOT 31 U/L (7-37); BILIRUBIN,TOTAL 0.6 MG/DL (0.2-1.0); BLOOD UREA NITROGEN 26 MG/DL (7-18); CALCIUM LEVEL 9.2 MG/DL (8.8-10.2); CARBON DIOXIDE LEVEL 30 MEQ/L (21-32); CHLORIDE LEVEL 104 MEQ/L (98-107); CHOLESTEROL LEVEL 132 MG/DL (<200); GLOMERULAR FILTRATION RATE > 60.0 (>42); GLUCOSE, FASTING 95 MG/DL (70-100); HDL CHOLESTEROL 40 MG/DL (>40); LDL CHOLESTEROL 61 MG/DL (<100); NON-HDL-C 92 MG/DL; POTASSIUM SERUM 4.3 MEQ/L (3.5-5.1); SODIUM LEVEL 141 MEQ/L (136-145); TRIGLYCERIDES LEVEL 157 MG/DL (<150)
== END ==
LOC: M LAB 08:24
DX: I11.9 Hypertensive heart disease without heart failure (principal)
CPT/HCPCS: 80053

== ENCOUNTER → 2018-06-03 | Outpatient (REF) | payer MEDICARE, OTHER ==
[~2018-06-03] MED LIST changes: +/DIVA50TA PO; +ALEV220T26 PO; +ASPI81TA85 PO; +ATOR1TAB21 PO; +CIAL20TA PO; +CIALIS PO; +DEPA500T2 PO; -NS 1,000 ML IV; +OMEP20CA3 PO; +RAMI10CA PO; +RAMI1CAP26 PO; +SIMV40TA2 PO
== END ==
LOC: M LABNEURO 11:30
PROVIDERS: ATTEND Physician Assistant Medical
DX: G40.909 Epilepsy, unspecified, not intractable, without status epilepticus (principal)

== ENCOUNTER → 2018-09-30 | Outpatient (CLI) | payer MEDICARE, BC, OTHER ==
[~2018-09-30] MED LIST changes: -/DIVA50TA PO; +DEPA1TAB3 PO
[2018-09-30 12:16] LABS: BLOOD UREA NITROGEN 22 MG/DL (7-18); CARBON DIOXIDE LEVEL 30 MEQ/L (21-32); CHLORIDE LEVEL 106 MEQ/L (98-107); CREATININE FOR GFR 0.97 MG/DL (0.70-1.30); GLOMERULAR FILTRATION RATE > 60.0 (>42); GLUCOSE, FASTING 114 MG/DL (70-100); POTASSIUM SERUM 4.3 MEQ/L (3.5-5.1); SODIUM LEVEL 141 MEQ/L (136-145)
== END ==
LOC: M LAB 10:41
PROVIDERS: ATTEND Physician Assistant
DX: I11.9 Hypertensive heart disease without heart failure (principal)

== ENCOUNTER → 2019-01-08 | Outpatient (CLI) | payer MEDICARE, BC, OTHER ==
[~2019-01-08] MED LIST changes: +OMEP1CAP73 PO
--- NOTE | 2019-01-08 12:06 | REP ---
PA and lateral chest: Comparison is 02/21/2014. There is focal increased radiodensity inferiorly in the left lung as an interval change. This is nonspecific and could represent infiltrate or mass. Follow-up to complete resolution is recommended. The remainder the lung kline are clear. Cardiac size is normal. The eduarda, mediastinum, and skeletal structures are unremarkable. There is a dual-chamber pacemaker, unchanged. Impression: New focal density inferiorly in the right lung, nonspecific, infiltrate versus mass. Follow-up to complete resolution is recommended. Electronically Signed by Pietro Deleon MD 01/08/2019 11:58 A
== END ==
LOC: M CLY 11:37
PROVIDERS: ATTEND Family Medicine
DX: R91.8 Other nonspecific abnormal finding of lung field (principal); R05 Cough; Z95.0 Presence of cardiac pacemaker
CPT/HCPCS: 71046; G0463

== ENCOUNTER → 2019-01-29 | Outpatient (CLI) | payer MEDICARE, BC, OTHER ==
[~2019-01-29] MED LIST changes: -OMEP1CAP73 PO; +OMEP20CA4 PO
--- NOTE | 2019-01-29 14:53 | REP ---
Chest x-ray: Three views. History: Abnormal chest x-ray. Comparison chest x-ray: January 08, 2019. Findings: A two lead transvenous pacemaker is noted in place via the left side. There are orthopedic anchors in the right humeral head. The heart is not enlarged. Pulmonary vasculature is not increased. There is a hazy opacity again noted in the left mid lung field similar to the previous study. It is smaller than on the prior study consistent with gradually improving infiltrate. No new infiltrate is appreciated. Pleural angles are sharp. No bony abnormality. Impression: Gradually improving infiltrate in the lingular segment of the left upper lobe. Continued followup is recommended in 3-4 weeks. Electronically Signed by Lavon Pisano MD 01/29/2019 09:02 P
== END ==
LOC: M CLY 09:36
PROVIDERS: ATTEND Family Medicine
DX: R93.89 Abnormal findings on diagnostic imaging of other specified body structures (principal); R91.8 Other nonspecific abnormal finding of lung field

== ENCOUNTER → 2019-03-05 | Outpatient (CLI) | payer MEDICARE, BC, OTHER ==
--- NOTE | 2019-03-05 09:50 | REP ---
PA and lateral chest: Comparison is 01/29/2019. The comparison study the patient had an infiltrate in the lingular segment of the left upper lobe and improved from other prior studies. On the study today there is persisting density in the lingular segment of the left upper lobe, decreased in size, persisting improving infiltrate versus ensuing parenchymal scarring versus neoplasm. Follow-up to complete resolution is recommended. Chest CT might be considered. The remainder of the lung kline are clear. Cardiac size is normal. The eduarda, mediastinum, skeletal structures are except for orthopedic screws in the right humeral head. The pacemaker is unchanged. Impression: Persisting density in the location of the patient's known lingular infiltrate. Follow-up to ablate resolution is recommended. CT might be considered. Electronically Signed by Pietro Deleon MD 03/05/2019 09:42 A
== END ==
LOC: M CLY 09:24
PROVIDERS: ATTEND Family Medicine
DX: R93.89 Abnormal findings on diagnostic imaging of other specified body structures (principal)

== ENCOUNTER → 2019-03-21 | Outpatient (REF) | payer MEDICARE, OTHER ==
[2019-03-21 17:16] LABS: BLOOD UREA NITROGEN 14 MG/DL (7-18); CALCIUM LEVEL 9.1 MG/DL (8.8-10.2); CARBON DIOXIDE LEVEL 29 MEQ/L (21-32); CHLORIDE LEVEL 107 MEQ/L (98-107); CREATININE FOR GFR 0.92 MG/DL (0.70-1.30); GLOMERULAR FILTRATION RATE > 60.0 (>42); GLUCOSE, FASTING 88 MG/DL (70-100); POTASSIUM SERUM 4.3 MEQ/L (3.5-5.1); SODIUM LEVEL 143 MEQ/L (136-145)
[2019-03-21 17:34] LABS: HEMATOCRIT 48.5 % (42.0-52.0); HEMOGLOBIN 16.2 g/dl (13.5-17.5); MEAN CORPUSCULAR HGB CONC 33.4 g/dl (32.0-36.5); MEAN CORPUSCULAR VOLUME 95.7 fl (80.0-96.0); PLATELET COUNT, AUTOMATED 160 10^3/uL (150-450); RED BLOOD COUNT 5.07 10^6/uL (4.30-6.10); WHITE BLOOD COUNT 7.3 10^3/uL (4.0-10.0)
== END ==
LOC: M SFHCCLAY 11:26
PROVIDERS: ATTEND Family Medicine
DX: A09 Infectious gastroenteritis and colitis, unspecified (principal)

== ENCOUNTER → 2019-03-27 | Outpatient (CLI) | payer MEDICARE, BC, OTHER ==
[~2019-03-27] MED LIST changes: +OMEP1CAP73 PO; -OMEP20CA4 PO
--- NOTE | 2019-03-27 09:39 | REP ---
PA and lateral chest: Comparisons are 01/08/2019, 01/29/2090 and 03/05/2019. The known infiltrate in the lingular segment of the left upper lobe has significantly decreased in size. The only residual today is a thin curvilinear density, likely ensuing parenchymal scarring. The left costophrenic angle is slightly effaced. This may represent a tiny left pleural effusion or pleural adhesion. Lung kline otherwise clear. Cardiac size normal. The eduarda, mediastinum, skeletal structures are unremarkable except for orthopedic anchor screws in the right humeral head, unchanged. Impression: The known infiltrate in the lingular segment of the left upper lobe has almost entirely resolved. Thin curvilinear density persists, likely ensuing parenchymal scarring. The left costophrenic angle is mildly effaced. This could represent a small left pleural effusion. Electronically Signed by Pietro Deleon MD 03/27/2019 09:31 A
== END ==
LOC: M CLY 08:30
PROVIDERS: ATTEND Family Medicine
DX: R91.8 Other nonspecific abnormal finding of lung field (principal); R93.89 Abnormal findings on diagnostic imaging of other specified body structures; E78.00 Pure hypercholesterolemia, unspecified

== ENCOUNTER → 2019-03-27 | Outpatient (REF) | payer MEDICARE, BC, OTHER ==
[2019-03-27 13:05] LABS: ALBUMIN 3.4 GM/DL (3.2-5.2); ALT/SGPT 38 U/L (12-78); BILIRUBIN,DIRECT < 0.1 MG/DL (0.0-0.2); BILIRUBIN,TOTAL 0.3 MG/DL (0.2-1.0); CHOLESTEROL LEVEL 121 MG/DL (<200); HDL CHOLESTEROL 37 MG/DL (>40); LDL CHOLESTEROL 51 MG/DL (<100); NON-HDL-C 84 MG/DL; TOTAL PROTEIN 6.8 GM/DL (6.4-8.2); TRIGLYCERIDES LEVEL 167 MG/DL (<150)
== END ==
LOC: M LABDRAWC 12:07
PROVIDERS: ATTEND Physician Assistant
DX: E78.00 Pure hypercholesterolemia, unspecified (principal)

== ENCOUNTER → 2019-06-27 | Outpatient (CLI) | payer MEDICARE, BC, OTHER ==
[~2019-06-27] MED LIST changes: +OMEP-172 PO; -OMEP1CAP73 PO
== END ==
LOC: M LAB 14:44
PROVIDERS: ATTEND Physician Assistant Medical
DX: R56.9 Unspecified convulsions (principal)

== ENCOUNTER → 2019-10-13 | Outpatient (CLI) | payer MEDICARE, BC, OTHER ==
[~2019-10-13] MED LIST changes: -OMEP-172 PO; +OMEP1CAP73 PO
[2019-10-13 11:06] LABS: BLOOD UREA NITROGEN 18 MG/DL (7-18); CALCIUM LEVEL 9.2 MG/DL (8.8-10.2); CARBON DIOXIDE LEVEL 30 MEQ/L (21-32); CHLORIDE LEVEL 106 MEQ/L (98-107); CREATININE FOR GFR 0.97 MG/DL (0.70-1.30); GLOMERULAR FILTRATION RATE > 60.0 (>42); GLUCOSE, FASTING 175 MG/DL (70-100); SODIUM LEVEL 141 MEQ/L (136-145)
== END ==
LOC: M LAB 10:11
PROVIDERS: ATTEND Physician Assistant
DX: I11.9 Hypertensive heart disease without heart failure (principal)

== ENCOUNTER → 2019-12-24 | Outpatient (REF) | payer MEDICARE, OTHER ==
[2019-12-24 17:02] LABS: HEMATOCRIT 46.2 % (42.0-52.0); HEMOGLOBIN 15.4 g/dl (13.5-17.5); MEAN CORPUSCULAR HEMOGLOBIN 31.7 pg (27.0-33.0); MEAN CORPUSCULAR HGB CONC 33.3 g/dl (32.0-36.5); MEAN CORPUSCULAR VOLUME 95.1 fl (80.0-96.0); PLATELET COUNT, AUTOMATED 143 10^3/uL (150-450); RED BLOOD COUNT 4.86 10^6/uL (4.30-6.10); WHITE BLOOD COUNT 5.2 10^3/uL (4.0-10.0)
[2019-12-24 17:31] LABS: HEMOGLOBIN A1c 7.1 %
[2019-12-24 17:42] LABS: ALBUMIN 3.4 GM/DL (3.2-5.2); ALT/SGPT 54 U/L (12-78); BILIRUBIN,TOTAL 0.4 MG/DL (0.2-1.0); BLOOD UREA NITROGEN 16 MG/DL (7-18); CARBON DIOXIDE LEVEL 30 MEQ/L (21-32); CHLORIDE LEVEL 107 MEQ/L (98-107); CHOLESTEROL LEVEL 139 MG/DL (<200); CHOLESTEROL RISK RATIO 3.971 (<5); CREATININE FOR GFR 0.96 MG/DL (0.70-1.30); GLOMERULAR FILTRATION RATE > 60.0 (>42); GLUCOSE, FASTING 137 MG/DL (70-100); HDL CHOLESTEROL 35 MG/DL (>40); LDL CHOLESTEROL 78 MG/DL (<100); NON-HDL-C 104 MG/DL; SODIUM LEVEL 140 MEQ/L (136-145); TRIGLYCERIDES LEVEL 129 MG/DL (<150)
== END ==
LOC: M SFHCCLAY 09:40
PROVIDERS: ATTEND Family Medicine
DX: R73.09 Other abnormal glucose (principal); G40.909 Epilepsy, unspecified, not intractable, without status epilepticus; I11.9 Hypertensive heart disease without heart failure; E78.00 Pure hypercholesterolemia, unspecified

== ENCOUNTER → 2020-03-26 | Outpatient (CLI) | payer MEDICARE, OTHER ==
[~2020-03-26] MED LIST changes: -ASPI81TA85 PO; +ASPI81TA86 PO
[2020-03-26 09:15] LABS: ALBUMIN 3.4 GM/DL (3.2-5.2); ALT/SGPT 45 U/L (12-78); BILIRUBIN,TOTAL 0.7 MG/DL (0.2-1.0); BLOOD UREA NITROGEN 20 MG/DL (7-18); CALCIUM LEVEL 8.8 MG/DL (8.8-10.2); CARBON DIOXIDE LEVEL 30 MEQ/L (21-32); CHLORIDE LEVEL 106 MEQ/L (98-107); CHOLESTEROL LEVEL 153 MG/DL (<200); CHOLESTEROL RISK RATIO 3.825 (<5); CREATININE FOR GFR 1.01 MG/DL (0.70-1.30); GLOMERULAR FILTRATION RATE > 60.0 (>42); GLUCOSE, FASTING 128 MG/DL (70-100); HDL CHOLESTEROL 40 MG/DL (>40); LDL CHOLESTEROL 84 MG/DL (<100); NON-HDL-C 113 MG/DL; POTASSIUM SERUM 3.9 MEQ/L (3.5-5.1); SODIUM LEVEL 141 MEQ/L (136-145); TOTAL PROTEIN 7.2 GM/DL (6.4-8.2); TRIGLYCERIDES LEVEL 143 MG/DL (<150)
== END ==
LOC: M LAB 07:41
PROVIDERS: ATTEND Physician Assistant
DX: E78.00 Pure hypercholesterolemia, unspecified (principal); I11.9 Hypertensive heart disease without heart failure

== ENCOUNTER → 2020-05-03 | Outpatient (CLI) | payer MEDICARE, BC, OTHER ==
[2020-05-03 11:41] LABS: HEMATOCRIT 48.7 % (42.0-52.0); MEAN CORPUSCULAR HEMOGLOBIN 31.1 pg (27.0-33.0); MEAN CORPUSCULAR HGB CONC 32.9 g/dl (32.0-36.5); MEAN CORPUSCULAR VOLUME 94.7 fl (80.0-96.0); PLATELET COUNT, AUTOMATED 148 10^3/uL (150-450); RED BLOOD COUNT 5.14 10^6/uL (4.30-6.10); WHITE BLOOD COUNT 6.6 10^3/uL (4.0-10.0)
[2020-05-03 12:15] LABS: MAGNESIUM LEVEL 2.2 MG/DL (1.8-2.4); THYROID STIMULATING HORMONE 1.6 uIU/ML (0.358-3.740)
== END ==
LOC: M LAB 10:57
PROVIDERS: ATTEND Physician Assistant
DX: I48.0 Paroxysmal atrial fibrillation (principal)

== ENCOUNTER → 2020-06-09 | Outpatient (CLI) | payer MEDICARE, BC, OTHER ==
[2020-06-09 10:37] LABS: BASO % 0.6 % (0.0-1.0); EOS # 0.2 10^3/uL (0.0-0.5); EOS % 2.5 % (0.0-3.0); HEMATOCRIT 49.1 % (42.0-52.0); LYMPH # 2.3 10^3/uL (1.5-5.0); LYMPH % 31.3 % (24.0-44.0); MEAN CORPUSCULAR HEMOGLOBIN 30.9 pg (27.0-33.0); MEAN CORPUSCULAR HGB CONC 32.6 g/dl (32.0-36.5); MEAN CORPUSCULAR VOLUME 94.8 fl (80.0-96.0); MONO # 0.8 10^3/uL (0.0-0.8); MONO % 10.9 % (0.0-5.0); NEUTROPHILS % 54.3 % (36.0-66.0); PLATELET COUNT, AUTOMATED 140 10^3/uL (150-450); RED BLOOD COUNT 5.18 10^6/uL (4.30-6.10); WHITE BLOOD COUNT 7.3 10^3/uL (4.0-10.0)
[2020-06-09 11:05] LABS: VALPROIC ACID (DEPAKOTE) 91.4 UG/ML (50.0-100.0)
== END ==
LOC: M LAB 09:30
PROVIDERS: ATTEND Physician Assistant Medical
DX: Z51.81 Encounter for therapeutic drug level monitoring (principal); Z79.899 Other long term (current) drug therapy

== ENCOUNTER → 2020-06-25 | Outpatient (REF) | payer MEDICARE, OTHER ==
[2020-06-25 12:25] LABS: BLOOD UREA NITROGEN 17 MG/DL (7-18); CALCIUM LEVEL 9.2 MG/DL (8.8-10.2); CARBON DIOXIDE LEVEL 34 MEQ/L (21-32); CHLORIDE LEVEL 102 MEQ/L (98-107); CREATININE FOR GFR 0.98 MG/DL (0.70-1.30); GLOMERULAR FILTRATION RATE > 60.0 (>42); GLUCOSE, FASTING 108 MG/DL (70-100); POTASSIUM SERUM 4.7 MEQ/L (3.5-5.1); SODIUM LEVEL 139 MEQ/L (136-145)
[2020-06-25 13:49] LABS: HEMOGLOBIN A1c 5.9 %
== END ==
LOC: M SFHCCLAY 09:34
PROVIDERS: ATTEND Family Medicine
DX: E11.9 Type 2 diabetes mellitus without complications (principal)
CPT/HCPCS: 80048; 83036; G0463

== ENCOUNTER → 2020-09-27 | Outpatient (CLI) | payer MEDICARE, BC, OTHER ==
[2020-09-27 11:37] LABS: HEMATOCRIT 48.9 % (42.0-52.0); HEMOGLOBIN 16.1 g/dl (13.5-17.5); MEAN CORPUSCULAR HEMOGLOBIN 31.4 pg (27.0-33.0); MEAN CORPUSCULAR HGB CONC 32.9 g/dl (32.0-36.5); MEAN CORPUSCULAR VOLUME 95.5 fl (80.0-96.0); PLATELET COUNT, AUTOMATED 144 10^3/uL (150-450); RED BLOOD COUNT 5.12 10^6/uL (4.30-6.10); WHITE BLOOD COUNT 6.6 10^3/uL (4.0-10.0)
[2020-09-27 12:05] LABS: BLOOD UREA NITROGEN 23 MG/DL (7-18); CALCIUM LEVEL 9.5 MG/DL (8.8-10.2); CARBON DIOXIDE LEVEL 30 MEQ/L (21-32); CHLORIDE LEVEL 106 MEQ/L (98-107); CREATININE FOR GFR 1.01 MG/DL (0.70-1.30); GLOMERULAR FILTRATION RATE > 60.0 (>42); GLUCOSE, FASTING 140 MG/DL (70-100); POTASSIUM SERUM 4.2 MEQ/L (3.5-5.1); SODIUM LEVEL 142 MEQ/L (136-145)
== END ==
LOC: M LAB 10:31
PROVIDERS: ATTEND Physician Assistant
DX: I11.9 Hypertensive heart disease without heart failure (principal); I48.0 Paroxysmal atrial fibrillation

== ENCOUNTER → 2020-11-16 | Outpatient (CLI) | payer MEDICARE, BC, OTHER ==
[2020-11-16 11:01] LABS: BASO % 0.7 % (0.0-1.0); EOS # 0.2 10^3/uL (0.0-0.5); EOS % 2.8 % (0.0-3.0); HEMATOCRIT 50.5 % (42.0-52.0); HEMOGLOBIN 16.7 g/dl (13.5-17.5); LYMPH # 1.9 10^3/uL (1.5-5.0); LYMPH % 32.6 % (24.0-44.0); MEAN CORPUSCULAR HEMOGLOBIN 30.9 pg (27.0-33.0); MEAN CORPUSCULAR HGB CONC 33.1 g/dl (32.0-36.5); MEAN CORPUSCULAR VOLUME 93.5 fl (80.0-96.0); MONO # 0.6 10^3/uL (0.0-0.8); MONO % 10.6 % (2.0-8.0); NEUTROPHILS % 52.8 % (36.0-66.0); PLATELET COUNT, AUTOMATED 145 10^3/uL (150-450); WHITE BLOOD COUNT 5.7 10^3/uL (4.0-10.0)
[2020-11-16 11:34] LABS: ALBUMIN 3.6 GM/DL (3.2-5.2); ALT/SGPT 46 U/L (12-78); BILIRUBIN,TOTAL 0.4 MG/DL (0.2-1.0); BLOOD UREA NITROGEN 12 MG/DL (7-18); CALCIUM LEVEL 9.2 MG/DL (8.8-10.2); CARBON DIOXIDE LEVEL 29 MEQ/L (21-32); CHLORIDE LEVEL 106 MEQ/L (98-107); CREATININE FOR GFR 0.91 MG/DL (0.70-1.30); GLOMERULAR FILTRATION RATE > 60.0 (>42); GLUCOSE, FASTING 160 MG/DL (70-100); POTASSIUM SERUM 4.6 MEQ/L (3.5-5.1); SODIUM LEVEL 141 MEQ/L (136-145); VALPROIC ACID (DEPAKOTE) 84.5 UG/ML (50.0-100.0)
== END ==
LOC: M LAB 10:06
PROVIDERS: ATTEND Physician Assistant Medical
DX: R56.9 Unspecified convulsions (principal); Z51.81 Encounter for therapeutic drug level monitoring; M51.37 Other intervertebral disc degeneration, lumbosacral region; Z79.01 Long term (current) use of anticoagulants

== ENCOUNTER → 2020-11-16 | Outpatient (CLI) | payer MEDICARE, BC, OTHER ==
[2020-11-16 10:58] LABS: COLLAGEN EPINEPHRINE 94 SECONDS (74-162)
[2020-11-16 11:11] LABS: INR 1.08; PROTHROMBIN TIME 14.2 SECONDS (12.5-14.3)
[2020-11-16 11:12] LABS: PARTIAL THROMBOPLASTIN TIME 32.2 SECONDS (24.2-38.5)
== END ==
LOC: M LAB 10:03
PROVIDERS: ATTEND Physician Assistant
DX: M51.37 Other intervertebral disc degeneration, lumbosacral region (principal); Z79.01 Long term (current) use of anticoagulants

== ENCOUNTER → 2020-11-18 | Outpatient (CLI) | payer MEDICARE, BC, OTHER ==
--- NOTE | 2020-11-18 08:47 | REPVR ---
PROCEDURE INFORMATION: Exam: CT Lumbar Spine Without Contrast Exam date and time: 11/18/2020 7:49 AM Age: 75 years old Clinical indication: Condition or disease; Disc degeneration; Lumbar region; Additional info: Oth int dis deg compare fro 2019 nri TECHNIQUE: Imaging protocol: Computed tomography images of the lumbar spine without contrast. Radiation optimization: All CT scans at this facility use at least one of these dose optimization techniques: automated exposure control; mA and/or kV adjustment per patient size (includes targeted exams where dose is matched to clinical indication); or iterative reconstruction. COMPARISON: No relevant prior studies currently available (including described 2019 images). FINDINGS: Vertebrae: Mild lumbar levoscoliosis. There is 6.0 mm anterolisthesis of L4 on L5 in the neutral position. No destructive bony process identified. No fracture. Discs/Spinal canal/Neural foramina: Mild right L1-L2 primary facet osteoarthritis. Mild bilateral L2-L3 primary facet osteoarthritis. Moderate L3-L4 spinal stenosis. Mild moderate bilateral L3-L4 primary facet osteoarthritis. Severe L4-L5 spinal stenosis. Severe bilateral L4-L5 and L5-S1 primary facet osteoarthritis. Severe left L5-S1 disc narrowing. Severe left L5-S1 neural foraminal narrowing. Sacrum/coccyx: Anterior bridging right sacroiliac joint marginal osteophytes. Stomach and bowel: Sigmoid colonic diverticula are present without evidence of diverticulitis. Appendix: The partially imaged vermiform appendix is normal as visualized. Vasculature: Moderate aortic atherosclerotic calcification without aneurysm. The iliac arteries show moderate bilateral atherosclerotic calcifications without evidence of aneurysm. Soft tissues: Unremarkable. IMPRESSION: 1. Degenerative changes as above, including severe L4-L5 and moderate L3-L4 spinal stenoses and grade 1 L4-5 degenerative type anterolisthesis. 2. No acute lumbar spinal bony injury identified. 3. Diverticulosis. Electronically signed by: Rasta Markham On 11/18/2020 08:46:57 AM
== END ==
LOC: M RAD 07:33
PROVIDERS: ATTEND Physician Assistant
DX: M51.37 Other intervertebral disc degeneration, lumbosacral region (principal); M48.061 Spinal stenosis, lumbar region without neurogenic claudication; K57.30 Diverticulosis of large intestine without perforation or abscess without bleeding

== ENCOUNTER → 2020-12-02 | Outpatient (REF) | payer MEDICARE, OTHER ==
[2020-12-02 19:02] LABS: HEMOGLOBIN A1c 6.3 %
== END ==
LOC: M SFHCCLAY 12:28
PROVIDERS: ATTEND Family Medicine
DX: R73.02 Impaired glucose tolerance (oral) (principal)
CPT/HCPCS: 83036; G0463

== ENCOUNTER → 2021-03-28 | Outpatient (CLI) | payer MEDICARE, OTHER, BC ==
[2021-03-28 12:40] LABS: HEMATOCRIT 51.5 % (42.0-52.0); HEMOGLOBIN 17.2 g/dl (13.5-17.5); MEAN CORPUSCULAR HEMOGLOBIN 31.3 pg (27.0-33.0); MEAN CORPUSCULAR HGB CONC 33.4 g/dl (32.0-36.5); MEAN CORPUSCULAR VOLUME 93.6 fl (80.0-96.0); PLATELET COUNT, AUTOMATED 166 10^3/uL (150-450); WHITE BLOOD COUNT 7.1 10^3/uL (4.0-10.0)
[2021-03-28 13:10] LABS: ALBUMIN 3.6 GM/DL (3.2-5.2); ALT/SGPT 47 U/L (12-78); BILIRUBIN,TOTAL 0.5 MG/DL (0.2-1.0); BLOOD UREA NITROGEN 22 MG/DL (7-18); CALCIUM LEVEL 9.5 MG/DL (8.8-10.2); CARBON DIOXIDE LEVEL 31 MEQ/L (21-32); CHLORIDE LEVEL 104 MEQ/L (98-107); CHOLESTEROL LEVEL 164 MG/DL (<200); CHOLESTEROL RISK RATIO 3.727 (<5); CREATININE FOR GFR 0.97 MG/DL (0.70-1.30); GLOMERULAR FILTRATION RATE > 60.0 (>42); GLUCOSE, FASTING 111 MG/DL (70-100); HDL CHOLESTEROL 44 MG/DL (>40); LDL CHOLESTEROL 83 MG/DL (<100); MAGNESIUM LEVEL 2.1 MG/DL (1.8-2.4); NON-HDL-C 120 MG/DL; POTASSIUM SERUM 4.9 MEQ/L (3.5-5.1); SODIUM LEVEL 140 MEQ/L (136-145); TOTAL PROTEIN 7.2 GM/DL (6.4-8.2); TRIGLYCERIDES LEVEL 186 MG/DL (<150)
== END ==
LOC: M LAB 09:16
PROVIDERS: ATTEND Physician Assistant
DX: E78.00 Pure hypercholesterolemia, unspecified (principal); I11.9 Hypertensive heart disease without heart failure; I48.0 Paroxysmal atrial fibrillation

== ENCOUNTER → 2021-06-28 | Outpatient (REF) | payer MEDICARE, OTHER | LOC: M SFHCCLAY 08:39 | PROVIDERS: ATTEND Family Medicine | DX: I11.9 Hypertensive heart disease without heart failure (principal); E11.9 Type 2 diabetes mellitus without complications | CPT/HCPCS: 80048; 83036; G0463 ==

== ENCOUNTER → 2022-01-03 | Outpatient (CLI) | payer MEDICARE, BC, OTHER ==
[2022-01-03 12:06] LABS: PLATELET COUNT, AUTOMATED 141 10^3/uL (150-450)
[2022-01-03 12:15] LABS: INR 1.1; PROTHROMBIN TIME 14.6 SECONDS (12.7-14.5)
== END ==
LOC: M LAB 10:58
PROVIDERS: ATTEND Physician Assistant
DX: M51.36 Other intervertebral disc degeneration, lumbar region (principal)

== ENCOUNTER → 2022-01-11 | Outpatient (REF) | payer MEDICARE, OTHER ==
[2022-01-11 12:15] LABS: BLOOD UREA NITROGEN 13 MG/DL (7-18); CALCIUM LEVEL 9.3 MG/DL (8.8-10.2); CARBON DIOXIDE LEVEL 32 MEQ/L (21-32); CHLORIDE LEVEL 105 MEQ/L (98-107); CHOLESTEROL LEVEL 142 MG/DL (<200); CHOLESTEROL RISK RATIO 3.641 (<5); CREATININE FOR GFR 0.94 MG/DL (0.70-1.30); GLOMERULAR FILTRATION RATE > 60.0 (>42); GLUCOSE, FASTING 142 MG/DL (70-100); HDL CHOLESTEROL 39 MG/DL (>40); LDL CHOLESTEROL 76 MG/DL (<100); NON-HDL-C 103 MG/DL; POTASSIUM SERUM 4.2 MEQ/L (3.5-5.1); SODIUM LEVEL 141 MEQ/L (136-145); TRIGLYCERIDES LEVEL 137 MG/DL (<150); URIC ACID 4.4 MG/DL (3.5-7.2)
[2022-01-11 13:27] LABS: HEMOGLOBIN A1c 6.7 %
== END ==
LOC: M SFHCCLAY 08:33
PROVIDERS: ATTEND Family Medicine
DX: E11.9 Type 2 diabetes mellitus without complications (principal); M25.571 Pain in right ankle and joints of right foot; I11.9 Hypertensive heart disease without heart failure

== ENCOUNTER → 2022-04-03 | Outpatient (CLI) | payer MEDICARE, BC, OTHER ==
[2022-04-03 09:43] LABS: HEMATOCRIT 50.3 % (42.0-52.0); HEMOGLOBIN 16.9 g/dl (13.5-17.5); MEAN CORPUSCULAR HEMOGLOBIN 31.7 pg (27.0-33.0); MEAN CORPUSCULAR HGB CONC 33.6 g/dl (32.0-36.5); MEAN CORPUSCULAR VOLUME 94.4 fl (80.0-96.0); PLATELET COUNT, AUTOMATED 177 10^3/uL (150-450); RED BLOOD COUNT 5.33 10^6/uL (4.30-6.10); WHITE BLOOD COUNT 8.2 10^3/uL (4.0-10.0)
[2022-04-03 10:20] LABS: ALBUMIN 3.5 GM/DL (3.2-5.2); ALT/SGPT 41 U/L (12-78); BILIRUBIN,TOTAL 0.5 MG/DL (0.2-1.0); BLOOD UREA NITROGEN 20 MG/DL (7-18); CALCIUM LEVEL 9.8 MG/DL (8.8-10.2); CARBON DIOXIDE LEVEL 32 MEQ/L (21-32); CHLORIDE LEVEL 104 MEQ/L (98-107); CHOLESTEROL LEVEL 149 MG/DL (<200); CHOLESTEROL RISK RATIO 2.811 (<5); CREATININE FOR GFR 1.06 MG/DL (0.70-1.30); GLOMERULAR FILTRATION RATE > 60.0 (>42); GLUCOSE, FASTING 140 MG/DL (70-100); HDL CHOLESTEROL 53 MG/DL (>40); LDL CHOLESTEROL 72 MG/DL (<100); MAGNESIUM LEVEL 2.4 MG/DL (1.8-2.4); NON-HDL-C 96 MG/DL; POTASSIUM SERUM 4.7 MEQ/L (3.5-5.1); SODIUM LEVEL 139 MEQ/L (136-145); TOTAL PROTEIN 7.4 GM/DL (6.4-8.2); TRIGLYCERIDES LEVEL 121 MG/DL (<150)
== END ==
LOC: M LAB 08:52
PROVIDERS: ATTEND Physician Assistant
DX: I11.9 Hypertensive heart disease without heart failure (principal)

== ENCOUNTER 2022-04-16 11:28 | Emergency (ER) | payer MEDICARE, BC, OTHER ==
[~2022-04-16] VITALS: Ht 170.2 cm; Wt 94.9 kg
[2022-04-16] MEDS ORDERED: ELIQ5TAB (11:39)
[2022-04-16] MEDS ORDERED: ATEN25TA (11:39)
[2022-04-16] MEDS ORDERED: GABA-1171 (11:39)
[2022-04-16] MEDS ORDERED: ACE65ERTAB PO (11:39)
[2022-04-16 14:26] VITALS: BP 131/69
== END 2022-04-16 14:27 | disposition home or self-care (01) ==
LOC: M ED 11:28
DX: M25.512 Pain in left shoulder (principal); W17.81XA Fall down embankment (hill), initial encounter; Y92.828 Other wilderness area as the place of occurrence of the external cause; Y93.89 Activity, other specified; I48.91 Unspecified atrial fibrillation; I25.10 Atherosclerotic heart disease of native coronary artery without angina pectoris; Z95.0 Presence of cardiac pacemaker; I10 Essential (primary) hypertension; Z79.01 Long term (current) use of anticoagulants; Z88.5 Allergy status to narcotic agent; Z79.899 Other long term (current) drug therapy

== ENCOUNTER → 2022-06-27 | Outpatient (CLI) | payer MEDICARE, BC, OTHER ==
[~2022-06-27] MED LIST changes: +ACE65ERTAB PO; +ATEN25TA; +ELIQ5TAB; +GABA-1171; +ISOVUE-300 61% 50ML VIAL As Ordered ONE; +LIDOCAINE 1% MDV 20ML VIAL As Ordered ONE
== END ==
LOC: M RAD 13:52
PROVIDERS: ATTEND Physician Assistant
DX: S46.012D Strain of muscle(s) and tendon(s) of the rotator cuff of left shoulder, subsequent encounter (principal)
CPT/HCPCS: 23350; 73201; 77002; Q9967

== ENCOUNTER → 2022-11-16 | Outpatient (CLI) | payer MEDICARE, BC, OTHER ==
[~2022-11-16] MED LIST changes: -ISOVUE-300 61% 50ML VIAL As Ordered ONE; -LIDOCAINE 1% MDV 20ML VIAL As Ordered ONE
== END ==
LOC: M CLY 09:25
PROVIDERS: ATTEND Family Medicine
DX: Z95.0 Presence of cardiac pacemaker (principal)

== ENCOUNTER → 2023-01-02 | Outpatient (REF) | payer MEDICARE, OTHER ==
[2023-01-02 12:24] LABS: HEMOGLOBIN A1c 6.8 % (4.0-6.0)
[2023-01-02 12:32] LABS: APPEARANCE, URINE CLEAR (CLEAR); BACTERIA, URINE AUTO NEGATIVE (NEGATIVE); BILIRUBIN, URINE AUTO NEGATIVE (NEGATIVE); BLOOD, URINE BLOOD NEGATIVE (NEGATIVE); COLOR, URINE YELLOW (YELLOW); GLUCOSE, URINE (UA) AUTO 1+ mg/dL (NEGATIVE); KETONE, URINE AUTO TRACE mg/dL (NEGATIVE); LEUKOCYTE ESTERASE, URINE AUTO TRACE (NEGATIVE); MUCUS, URINE SMALL (NEGATIVE); NITRITE, URINE AUTO NEGATIVE (NEGATIVE); PROTEIN, URINE AUTO NEGATIVE (NEGATIVE); RBC, URINE AUTO 1 /HPF (0-3); SQUAMOUS EPITHELIAL CELL UR AU 0 /HPF (0-6); UROBILINOGEN, URINE AUTO 0.2 mg/dL (0.0-2.0); WBC, URINE AUTO 4 /HPF (0-3)
[2023-01-02 12:34] LABS: ALBUMIN 3.4 G/DL (3.2-5.2); ALKALINE PHOSPHATASE 59 U/L (46-116); ALT/SGPT 37 U/L (7.0-40); AST/SGOT 33 U/L (<34); BILIRUBIN,TOTAL 0.6 MG/DL (0.3-1.2); BLOOD UREA NITROGEN 11 MG/DL (9-23); CALCIUM LEVEL 9.2 MG/DL (8.3-10.6); CARBON DIOXIDE LEVEL 32 MMOL/L (20-31); CHLORIDE LEVEL 102 MMOL/L (98-107); CHOLESTEROL LEVEL 135 MG/DL (<200); CHOLESTEROL RISK RATIO 3.39 (<5); CREATININE FOR GFR 0.85 MG/DL (0.70-1.30); CREATININE, URINE 181.4 MG/DL; GLOMERULAR FILTRATION RATE > 60.0 (>42); GLUCOSE, FASTING 120 MG/DL (74-106); HDL CHOLESTEROL 39.8 MG/DL (>40); MAU/CREAT RATIO 2.7 MCG/MG (0.0-30.0); NON-HDL-C 95.2 MG/DL; SODIUM LEVEL 141 MMOL/L (136-145); TOTAL PROTEIN 6.9 G/DL (5.7-8.2); TRIGLYCERIDES LEVEL 146 MG/DL (<150)
== END ==
LOC: M SFHCCLAY 09:14
PROVIDERS: ATTEND Family Medicine
DX: E11.9 Type 2 diabetes mellitus without complications (principal); Z86.79 Personal history of other diseases of the circulatory system; E78.00 Pure hypercholesterolemia, unspecified; K21.9 Gastro-esophageal reflux disease without esophagitis; I11.9 Hypertensive heart disease without heart failure; M25.571 Pain in right ankle and joints of right foot

== ENCOUNTER → 2023-04-23 | Outpatient (CLI) | payer MEDICARE, BC, OTHER | LOC: M PLAIMG 09:17 | PROVIDERS: ATTEND Physician Assistant | DX: M48.061 Spinal stenosis, lumbar region without neurogenic claudication (principal) ==

== ENCOUNTER → 2023-06-13 | Outpatient (CLI) | payer MEDICARE, BC, OTHER ==
[2023-06-13 11:34] LABS: PLATELET COUNT, AUTOMATED 144 10^3/uL (150-450)
[2023-06-13 11:45] LABS: INR 1.19; PROTHROMBIN TIME 14.7 SECONDS (12.5-14.5)
== END ==
LOC: M LAB 10:53
PROVIDERS: ATTEND Physical Medicine & Rehabilitation
DX: M48.062 Spinal stenosis, lumbar region with neurogenic claudication (principal); Z79.01 Long term (current) use of anticoagulants

== ENCOUNTER → 2023-07-05 | Outpatient (REF) | payer MEDICARE, BC, OTHER ==
[2023-07-05 17:52] LABS: BLOOD UREA NITROGEN 23 MG/DL (9-23); CALCIUM LEVEL 9.6 MG/DL (8.3-10.6); CARBON DIOXIDE LEVEL 32 MMOL/L (20-31); CHLORIDE LEVEL 108 MMOL/L (98-107); CREATININE FOR GFR 0.94 MG/DL (0.70-1.30); GLOMERULAR FILTRATION RATE > 60.0 (>42); GLUCOSE, FASTING 216 MG/DL (74-106); HEMOGLOBIN A1c 7.3 % (4.0-6.0); POTASSIUM SERUM 4.7 MMOL/L (3.5-5.1); SODIUM LEVEL 140 MMOL/L (136-145)
== END ==
LOC: M SFHCCLAY 10:29
PROVIDERS: ATTEND Family Medicine
DX: Z86.79 Personal history of other diseases of the circulatory system (principal); I11.9 Hypertensive heart disease without heart failure; E11.9 Type 2 diabetes mellitus without complications

== ENCOUNTER → 2023-08-29 | Outpatient (CLI) | payer MEDICARE, BC, OTHER | LOC: M PLAIMG 10:01 | PROVIDERS: ATTEND Physical Medicine & Rehabilitation | DX: M54.17 Radiculopathy, lumbosacral region (principal); N40.0 Benign prostatic hyperplasia without lower urinary tract symptoms; K57.32 Diverticulitis of large intestine without perforation or abscess without bleeding ==

== ENCOUNTER → 2023-09-12 | Outpatient (REF) | payer MEDICARE, OTHER ==
[2023-09-12 11:25] LABS: APPEARANCE, URINE CLEAR (CLEAR); BACTERIA, URINE AUTO NEGATIVE (NEGATIVE); BILIRUBIN, URINE AUTO NEGATIVE (NEGATIVE); BLOOD, URINE BLOOD NEGATIVE (NEGATIVE); COLOR, URINE YELLOW (YELLOW); GLUCOSE, URINE (UA) AUTO 3+ mg/dL (NEGATIVE); KETONE, URINE AUTO TRACE mg/dL (NEGATIVE); LEUKOCYTE ESTERASE, URINE AUTO NEGATIVE (NEGATIVE); NITRITE, URINE AUTO NEGATIVE (NEGATIVE); PROTEIN, URINE AUTO NEGATIVE (NEGATIVE); RBC, URINE AUTO 0 /HPF (0-3); SPECIFIC GRAVITY URINE AUTO 1.038 (1.002-1.035); SQUAMOUS EPITHELIAL CELL UR AU 0 /HPF (0-6); UROBILINOGEN, URINE AUTO 0.2 mg/dL (0.0-2.0); WBC, URINE AUTO 0 /HPF (0-3)
== END ==
LOC: M SFHCCLAY 08:23
PROVIDERS: ATTEND Family Medicine
DX: Z12.5 Encounter for screening for malignant neoplasm of prostate (principal); R31.29 Other microscopic hematuria; N40.0 Benign prostatic hyperplasia without lower urinary tract symptoms
CPT/HCPCS: 81001; G0103

== ENCOUNTER → 2023-09-25 | Outpatient (REF) | payer MEDICARE, BC, OTHER | LOC: M SFHCCLAY 12:31 | PROVIDERS: ATTEND Physician Assistant | DX: R09.02 Hypoxemia (principal) ==

== ENCOUNTER → 2023-10-01 | Outpatient (CLI) | payer MEDICARE, BC, OTHER | LOC: M CLY 09:16 | PROVIDERS: ATTEND Nurse Practitioner Family | DX: J18.0 Bronchopneumonia, unspecified organism (principal) ==

== ENCOUNTER 2023-12-12 09:59 | Day surgery (SDC) | payer MEDICARE, BC, OTHER ==
[~2023-12-12] VITALS: Ht 170.2 cm; Wt 90.8 kg
[~2023-12-12 09:59] MED LIST changes: +ALBU8.5H INH; -ATEN25TA; +ATEN25TA PO; +DIVA500T94 PO; -ELIQ5TAB; +ELIQ5TAB PO; -GABA-1171; +GABA-1171 PO; +JARD1TAB PO; +OMEP-173 PO; +RAMI10CA64 PO; -RAMI1CAP26 PO; +TAMS1CAP17 PO
[2023-12-12] MEDS: NS 1,000 ML IV ONE (10:25)
[2023-12-12] MEDS ORDERED: propofoL 200 MG/20 ML VIAL As Ordered ONE (10:32)
[2023-12-12] MEDS ORDERED: LIDOCAINE 2% 100MG/5ML SDV (FOR ANES.) As Ordered ONE (10:32)
[2023-12-12 11:40] VITALS: BP 99/55; O2SAT 98
== END 2023-12-12 11:55 | disposition home or self-care (01) ==
LOC: M OPP 09:59
PROVIDERS: ATTEND Internal Medicine Gastroenterology
DX: Z12.11 Encounter for screening for malignant neoplasm of colon (principal); Z86.010 Personal history of colon polyps; K64.0 First degree hemorrhoids; K57.30 Diverticulosis of large intestine without perforation or abscess without bleeding; I25.10 Atherosclerotic heart disease of native coronary artery without angina pectoris; E11.9 Type 2 diabetes mellitus without complications; Z95.5 Presence of coronary angioplasty implant and graft; Z79.01 Long term (current) use of anticoagulants; Z79.02 Long term (current) use of antithrombotics/antiplatelets; Z79.84 Long term (current) use of oral hypoglycemic drugs; Z79.899 Other long term (current) drug therapy; Z88.5 Allergy status to narcotic agent

== ENCOUNTER → 2024-01-02 | Outpatient (REF) | payer MEDICARE, BC, OTHER ==
[2024-01-02 13:31] LABS: THYROID STIMULATING HORMONE 1.476 uIU/ML (0.55-4.78)
[2024-01-02 13:33] LABS: FREE T4 1.19 NG/DL (0.89-1.76)
[2024-01-02 13:34] LABS: ALBUMIN 3.6 G/DL (3.2-5.2); ALKALINE PHOSPHATASE 59 U/L (46-116); ALT/SGPT 47 U/L (7.0-40); AST/SGOT 38 U/L (<34); BILIRUBIN,TOTAL 0.8 MG/DL (0.3-1.2); BLOOD UREA NITROGEN 16 MG/DL (9-23); CALCIUM LEVEL 9.7 MG/DL (8.3-10.6); CARBON DIOXIDE LEVEL 31 MMOL/L (20-31); CHLORIDE LEVEL 107 MMOL/L (98-107); CHOLESTEROL LEVEL 157 MG/DL (<200); CHOLESTEROL RISK RATIO 4.13 (<5); CREATININE FOR GFR 0.91 MG/DL (0.70-1.30); GLOMERULAR FILTRATION RATE > 60.0 (>42); GLUCOSE, FASTING 146 MG/DL (74-106); LDL CHOLESTEROL 94.8 MG/DL (<100); SODIUM LEVEL 144 MMOL/L (136-145); TOTAL PROTEIN 6.9 G/DL (5.7-8.2); TRIGLYCERIDES LEVEL 121 MG/DL (<150)
== END ==
LOC: M SFHCCLAY 08:42
PROVIDERS: ATTEND Family Medicine
DX: E11.9 Type 2 diabetes mellitus without complications (principal); E78.00 Pure hypercholesterolemia, unspecified; I11.9 Hypertensive heart disease without heart failure; Z86.79 Personal history of other diseases of the circulatory system; K21.9 Gastro-esophageal reflux disease without esophagitis; Z95.0 Presence of cardiac pacemaker

== ENCOUNTER → 2024-01-09 | Outpatient (CLI) | payer MEDICARE, BC, OTHER ==
[2024-01-09 12:20] LABS: BASO % 0.6 % (0.0-1.0); EOS # 0.1 10^3/uL (0.0-0.5); EOS % 1.4 % (0.0-3.0); HEMATOCRIT 48.9 % (42.0-52.0); HEMOGLOBIN 16.5 g/dl (13.5-17.5); LYMPH % 28.2 % (24.0-44.0); MEAN CORPUSCULAR HEMOGLOBIN 33.3 pg (27.0-33.0); MEAN CORPUSCULAR HGB CONC 33.7 g/dl (32.0-36.5); MEAN CORPUSCULAR VOLUME 98.6 fl (80.0-96.0); MONO # 0.7 10^3/uL (0.0-0.8); MONO % 9.4 % (2.0-8.0); NEUTROPHILS # 4.3 10^3/uL (1.5-8.5); NEUTROPHILS % 59.6 % (36.0-66.0); PLATELET COUNT, AUTOMATED 137 10^3/uL (150-450); RED BLOOD COUNT 4.96 10^6/uL (4.30-6.10); WHITE BLOOD COUNT 7.2 10^3/uL (4.0-10.0)
[2024-01-09 12:42] LABS: VALPROIC ACID (DEPAKOTE) 92.9 UG/ML (50.0-100.0)
[2024-01-09 12:43] LABS: ALBUMIN 3.5 G/DL (3.2-5.2); ALKALINE PHOSPHATASE 55 U/L (46-116); ALT/SGPT 54 U/L (7.0-40); AST/SGOT 42 U/L (<34); BILIRUBIN,TOTAL 0.6 MG/DL (0.3-1.2); BLOOD UREA NITROGEN 16 MG/DL (9-23); CALCIUM LEVEL 9.1 MG/DL (8.3-10.6); CARBON DIOXIDE LEVEL 30 MMOL/L (20-31); CHLORIDE LEVEL 106 MMOL/L (98-107); CREATININE FOR GFR 0.88 MG/DL (0.70-1.30); GLOMERULAR FILTRATION RATE > 60.0 (>42); GLUCOSE, FASTING 112 MG/DL (74-106); POTASSIUM SERUM 4.5 MMOL/L (3.5-5.1); SODIUM LEVEL 141 MMOL/L (136-145); TOTAL PROTEIN 6.7 G/DL (5.7-8.2)
[2024-01-09 12:45] LABS: VITAMIN B12 LEVEL 569 PG/ML (211-911)
[2024-01-09 12:49] LABS: FOLATE 19.6 NG/ML (>5.4)
== END ==
LOC: M LAB 11:13
PROVIDERS: ATTEND Psychiatry & Neurology Neurology
DX: R56.9 Unspecified convulsions (principal)

== ENCOUNTER → 2024-04-07 | Outpatient (CLI) | payer MEDICARE, BC, OTHER ==
[~2024-04-07] MED LIST changes: +ISOVUE-M 300 61% 15ML VIAL As Ordered ONE
[2024-04-07 07:10] VITALS: TEMP 97.7
[2024-04-07 10:30] VITALS: BP 141/68; O2SAT 98
== END ==
LOC: M IRPRO 06:59
PROVIDERS: ATTEND Physician Assistant
DX: M47.897 Other spondylosis, lumbosacral region (principal); M51.27 Other intervertebral disc displacement, lumbosacral region
CPT/HCPCS: 62284; 72131; Q9967

== ENCOUNTER 2024-04-22 17:15 | Emergency (ER) | payer MEDICARE, BC, OTHER ==
[~2024-04-22] VITALS: Ht 170.2 cm; Wt 93.3 kg
[~2024-04-22 17:15] MED LIST changes: -ISOVUE-M 300 61% 15ML VIAL As Ordered ONE
[2024-04-22 17:21] VITALS: BP 121/61; O2SAT 91
[2024-04-22 17:48] VITALS: TEMP 95.8
[2024-04-22] MEDS: NEOSPORIN OINT 0.9 GM PKT TOP ONE (20:25)
== END 2024-04-22 21:22 | disposition home or self-care (01) ==
LOC: M ED 17:15
DX: S80.01XA Contusion of right knee, initial encounter (principal); S80.211A Abrasion, right knee, initial encounter; S73.101A Unspecified sprain of right hip, initial encounter; W19.XXXA Unspecified fall, initial encounter; Y92.512 Supermarket, store or market as the place of occurrence of the external cause; Y93.9 Activity, unspecified; Y99.9 Unspecified external cause status; K57.30 Diverticulosis of large intestine without perforation or abscess without bleeding; M22.2X1 Patellofemoral disorders, right knee; M16.11 Unilateral primary osteoarthritis, right hip; Z95.0 Presence of cardiac pacemaker; Z85.828 Personal history of other malignant neoplasm of skin; R56.9 Unspecified convulsions; I10 Essential (primary) hypertension; E78.00 Pure hypercholesterolemia, unspecified; K21.9 Gastro-esophageal reflux disease without esophagitis; K44.9 Diaphragmatic hernia without obstruction or gangrene; N40.0 Benign prostatic hyperplasia without lower urinary tract symptoms; Z87.440 Personal history of urinary (tract) infections; M54.50 Low back pain, unspecified; F32.A Depression, unspecified; Z79.01 Long term (current) use of anticoagulants; Z79.899 Other long term (current) drug therapy; Z88.5 Allergy status to narcotic agent

== ENCOUNTER → 2024-05-02 | Outpatient (CLI) | payer MEDICARE, BC, OTHER | LOC: M WUC 13:19 | PROVIDERS: ATTEND Physician Assistant | DX: M16.11 Unilateral primary osteoarthritis, right hip (principal) ==

== ENCOUNTER → 2024-07-04 | Outpatient (REF) | payer MEDICARE, BC, OTHER ==
[2024-07-04 11:46] LABS: ALBUMIN 3.5 G/DL (3.2-5.2); ALKALINE PHOSPHATASE 53 U/L (40-129); ALT/SGPT 65 U/L (7.0-40); AST/SGOT 38 U/L (<34); BILIRUBIN,TOTAL 0.7 MG/DL (0.3-1.2); BLOOD UREA NITROGEN 21 MG/DL (9-23); CALCIUM LEVEL 9.9 MG/DL (8.3-10.6); CARBON DIOXIDE LEVEL 31 MMOL/L (20-31); CHLORIDE LEVEL 104 MMOL/L (98-107); CHOLESTEROL LEVEL 167 MG/DL (<200); CHOLESTEROL RISK RATIO 4.38 (<5); CREATININE FOR GFR 0.87 MG/DL (0.70-1.30); GLOMERULAR FILTRATION RATE > 60.0 (>42); GLUCOSE, FASTING 117 MG/DL (74-106); HDL CHOLESTEROL 38.1 MG/DL (>40); LDL CHOLESTEROL 94.9 MG/DL (<100); NON-HDL-C 128.9 MG/DL; POTASSIUM SERUM 4.7 MMOL/L (3.5-5.1); SODIUM LEVEL 143 MMOL/L (136-145); TOTAL PROTEIN 7.3 G/DL (5.7-8.2); TRIGLYCERIDES LEVEL 170 MG/DL (<150)
[2024-07-04 11:53] LABS: HEMOGLOBIN A1c 6.6 % (4.0-6.0)
[2024-07-04 15:31] LABS: IRON (FE) 151 UG/DL (65-175)
[2024-07-04 15:32] LABS: PERCENT SATURATION 50.7 % (19.7-50.0); TOTAL IRON BINDING CAPACITY 298 UG/DL (250-425)
[2024-07-04 15:33] LABS: FERRITIN 152.7 NG/ML (10.5-307.3)
[2024-07-04 15:50] LABS: HEPATITIS B SURFACE ANTIGEN NEGATIVE (NEGATIVE)
[2024-07-04 16:11] LABS: HEPATITIS C VIRUS ABY INDEX < 0.02 INDEX (<0.8)
[2024-07-04 16:12] LABS: HEPATITIS B CORE ANTIBODY IGM NEGATIVE (NEGATIVE)
[2024-07-07 14:52] LABS: ANA SCREEN, IFA NEGATIVE (NEGATIVE)
[2024-07-09 15:11] LABS: LIVER-KIDNEY MICROSOMAL ABY <= 20.0 U (<=20.0)
== END ==
LOC: M SFHCCLAY 09:09
PROVIDERS: ATTEND Physician Assistant
DX: Z01.89 Encounter for other specified special examinations (principal); E11.9 Type 2 diabetes mellitus without complications; E78.00 Pure hypercholesterolemia, unspecified; K21.9 Gastro-esophageal reflux disease without esophagitis; I11.9 Hypertensive heart disease without heart failure; Z86.79 Personal history of other diseases of the circulatory system; I35.0 Nonrheumatic aortic (valve) stenosis; Z95.0 Presence of cardiac pacemaker; G25.2 Other specified forms of tremor; G40.909 Epilepsy, unspecified, not intractable, without status epilepticus; Z23 Encounter for immunization

== ENCOUNTER → 2024-08-15 | Outpatient (CLI) | payer MEDICARE, BC, OTHER | LOC: M RAD 08:35 | PROVIDERS: ATTEND Physician Assistant | DX: R79.89 Other specified abnormal findings of blood chemistry (principal) ==

== ENCOUNTER → 2025-01-06 | Outpatient (REF) | payer MEDICARE, BC, OTHER ==
[~2025-01-06] MED LIST changes: +DIVA-41 PO; -DIVA500T94 PO
[2025-01-06 12:33] LABS: ESTIMATED AVERAGE GLUCOSE 146.0 MG/DL (60-110)
[2025-01-06 12:48] LABS: ALT/SGPT 32.0 U/L (7.0-40); AST/SGOT 22.0 U/L (<34); CALCIUM LEVEL 9.4 MG/DL (8.3-10.6); CARBON DIOXIDE LEVEL 31.0 MMOL/L (20-31); CHLORIDE LEVEL 101.0 MMOL/L (98-107); CHOLESTEROL LEVEL 162.0 MG/DL (<200); CHOLESTEROL RISK RATIO 4.14 (<5); CREATININE FOR GFR 1.0 MG/DL (0.70-1.30); GLOMERULAR FILTRATION RATE 77.5 (>42); LDL CHOLESTEROL 88.3 MG/DL (<100); NON-HDL-C 122.9 MG/DL; POTASSIUM SERUM 4.4 MMOL/L (3.5-5.1); SODIUM LEVEL 144.0 MMOL/L (136-145); TRIGLYCERIDES LEVEL 173.0 MG/DL (<150)
== END ==
LOC: M SFHCCLAY 08:32
PROVIDERS: ATTEND Physician Assistant
DX: Z23 Encounter for immunization (principal); J18.0 Bronchopneumonia, unspecified organism; E11.9 Type 2 diabetes mellitus without complications; E78.00 Pure hypercholesterolemia, unspecified; K21.9 Gastro-esophageal reflux disease without esophagitis; I11.9 Hypertensive heart disease without heart failure; Z86.79 Personal history of other diseases of the circulatory system; I35.0 Nonrheumatic aortic (valve) stenosis; Z95.0 Presence of cardiac pacemaker; G25.2 Other specified forms of tremor; G40.909 Epilepsy, unspecified, not intractable, without status epilepticus; N52.9 Male erectile dysfunction, unspecified; M48.00 Spinal stenosis, site unspecified; N40.0 Benign prostatic hyperplasia without lower urinary tract symptoms

== ENCOUNTER → 2025-05-07 | Outpatient (CLI) | payer MEDICARE, BC, OTHER ==
[~2025-05-07] MED LIST changes: -ACE65ERTAB PO; +ACET-1387 PO
== END ==
LOC: M PLAIMG 13:09
PROVIDERS: ATTEND Physician Assistant
DX: I08.0 Rheumatic disorders of both mitral and aortic valves (principal); I35.0 Nonrheumatic aortic (valve) stenosis

== ENCOUNTER → 2025-05-07 | Outpatient (CLI) | payer MEDICARE, BC, OTHER ==
[2025-05-07 12:43] LABS: BASO # 0.1 10^3/uL (0.0-0.2); BASO % 0.8 % (0.0-1.0); EOS # 0.2 10^3/uL (0.0-0.5); EOS % 2.8 % (0.0-3.0); LYMPH # 1.5 10^3/uL (1.5-5.0); LYMPH % 25.0 % (24.0-44.0); MONO # 0.6 10^3/uL (0.0-0.8); MONO % 9.6 % (2.0-8.0); NEUTROPHILS # 3.8 10^3/uL (1.5-8.5); NEUTROPHILS % 61.0 % (36.0-66.0); PLATELET COUNT, AUTOMATED 140 10^3/uL (150-450)
[2025-05-07 13:16] LABS: CALCIUM LEVEL 9.5 MG/DL (8.3-10.6); CARBON DIOXIDE LEVEL 29.0 MMOL/L (20-31); CHLORIDE LEVEL 106.0 MMOL/L (98-107); CREATININE FOR GFR 0.9 MG/DL (0.70-1.30); GLOMERULAR FILTRATION RATE 87.4 (>42); MAGNESIUM LEVEL 2.1 MG/DL (1.8-2.4); POTASSIUM SERUM 4.4 MMOL/L (3.5-5.1); SODIUM LEVEL 146.0 MMOL/L (136-145)
== END ==
LOC: M LAB 11:12
PROVIDERS: ATTEND Physician Assistant
DX: I48.0 Paroxysmal atrial fibrillation (principal); I35.0 Nonrheumatic aortic (valve) stenosis; I36.1 Nonrheumatic tricuspid (valve) insufficiency

== ENCOUNTER → 2025-06-05 | Outpatient (CLI) | payer MEDICARE, BC, OTHER ==
[~2025-06-05] MED LIST changes: +FINA5TAB2 PO; +MIRA50TA2 PO
[2025-06-05 11:50] LABS: PLATELET COUNT, AUTOMATED 137 10^3/uL (150-450)
[2025-06-05 12:08] LABS: CALCIUM LEVEL 8.6 MG/DL (8.3-10.6); CARBON DIOXIDE LEVEL 29 MMOL/L (20-31); CHLORIDE LEVEL 104 MMOL/L (98-107); CREATININE FOR GFR 0.79 MG/DL (0.70-1.30); GLOMERULAR FILTRATION RATE > 90.0 (>42); POTASSIUM SERUM 4.0 MMOL/L (3.5-5.1); SODIUM LEVEL 143 MMOL/L (136-145)
== END ==
LOC: M LAB 10:58
PROVIDERS: ATTEND Physician Assistant
DX: Z95.0 Presence of cardiac pacemaker (principal); Z79.899 Other long term (current) drug therapy

== ENCOUNTER → 2025-06-05 | Outpatient (REF) | payer MEDICARE, BC, OTHER | LOC: M LAB REF 15:01 | PROVIDERS: ATTEND Physician Assistant | DX: Z95.0 Presence of cardiac pacemaker (principal) ==

== ENCOUNTER → 2025-06-09 | Day surgery (SDC) | payer MEDICARE, BC, OTHER ==
[~2025-06-09] VITALS: Ht 170.2 cm; Wt 92.3 kg
[~2025-06-09] MED LIST changes: +ACETAMINOPHEN 1000MG/100ML IV BAG As Ordered ONE; +GLYCOPYRROLATE INJ 0.2 MG/ML 2 ML VIAL As Ordered ONE; +KETOROLAC 30 MG/ML 1 ML VIAL As Ordered ONE; +LABETALOL 100 MG/20 ML VIAL As Ordered ONE; +LACRILUBE (AKWA TEARS) OPHTH OINT 3.5 GM As Ordered ONE; +LIDOCAINE 2% 100 MG/5 ML SDV (FOR ANES.) As Ordered ONE; +LIDOCAINE 5% OINT 30 GM TUBE As Ordered ONE; +LR 1,000 ML IV SCH; +MIDAZOLAM INJ 2 MG/2 ML VIAL As Ordered ONE; +ONDANSETRON 4MG/2ML VIAL As Ordered ONE; +ROCURONIUM BROMIDE 50MG/5ML VIAL As Ordered ONE; +SUGAMMADEX SODIUM 200 MG/2 ML VIAL As Ordered ONE; +dexAMETHasone 4 MG/ML 1 ML VIAL As Ordered ONE; +dexmedeTOMIDine (4 MCG/ML) 200 MCG/50 ML BTL As Ordered ONE
[2025-06-09] MEDS: AMIODARONE 150 MG/3 ML VIAL As Ordered ONE (12:30)
[2025-06-09] MEDS: ceFAZolin SOD 2 GM IV ONCE IV ONE (13:01)
[2025-06-09] MEDS: LIDOCAINE 1% SDV 30 ML VIAL As Ordered ONE (13:42)
[2025-06-09 13:55] VITALS: TEMP 98.3
[2025-06-09 14:25] VITALS: BP 137/61; O2SAT 94
== END | disposition home or self-care (01) ==
LOC: M SDC 11:17
PROVIDERS: ATTEND Internal Medicine Cardiovascular Disease
DX: Z45.010 Encounter for checking and testing of cardiac pacemaker pulse generator [battery] (principal); I49.5 Sick sinus syndrome; I48.0 Paroxysmal atrial fibrillation; I11.9 Hypertensive heart disease without heart failure; G40.909 Epilepsy, unspecified, not intractable, without status epilepticus; Z79.01 Long term (current) use of anticoagulants; Z79.899 Other long term (current) drug therapy; E66.9 Obesity, unspecified; Z68.31 Body mass index [BMI] 31.0-31.9, adult; K21.9 Gastro-esophageal reflux disease without esophagitis; M21.371 Foot drop, right foot; Z88.5 Allergy status to narcotic agent; M48.00 Spinal stenosis, site unspecified
CPT/HCPCS: 33228; C1785; J0688; J0690; J1596; J2250; J2405; J3010